=== PATIENT | female | born 1940 | race Caucasian/White ===

== ENCOUNTER 2016-08-18 13:45 | Emergency (ER) | payer MEDICARE, OTHER ==
[~2016-08-18] VITALS: Ht 147.3 cm; Wt 43.0 kg
[~2016-08-18 13:45] MED LIST: ASPI325T PO; LOTR5CAP3 PO; [UNRECOGNIZED DRUG - OTHER] PO
[2016-08-18 13:49] VITALS: BP 213/104; PULSE 72; RESP 18; TEMP 97.8; O2SAT 98
[2016-08-18 13:50] VITALS: BP 223/102
[2016-08-18 14:03] VITALS: BP 194/91; PULSE 85; RESP 20; TEMP 98.6; O2SAT 98
--- NOTE | 2016-08-18 14:13 | PD ---
HPI Chief Complaint: Neuro Symptoms/ Deficits Time Seen by Provider: 14:10 Travel History International Travel<30 days: No Contact w/Intl Traveler<30days: No Traveled to known affect area: No History of Present Illness HPI Patient comes in for evaluation from her primary care doctor's office for altered mental status and a headache that began yesterday. Patient's daughter states that her mother and diarrhea last night, complaining of a headache, and has been acting more disoriented over the past several days since her was place in the hospital for stroke. Reports that her mother tried sneaking out of the house today to drive herself to see her doctor. Patient complaining of a headache in the frontal lobe is throbbing like in nature. Patient denies anything making it better or worse. Denies chest pain, shortness of breath, nausea, vomiting, fevers, diarrhea today, blood in diarrhea last night, numbness or tingling anywhere, weakness, or taking her blood pressure medicine this morning. Patient's daughter reports that her mom has a shuffling gait which is unchanged and aside from the reported headache and odd behavior appears her normal self. PFSH Past Medical History Autoimmune Disease: No Blood Disorders: No Anxiety: No Depression: No Heart Rhythm Problems: No Cancer: No Cardiovascular Problems: Yes High Cholesterol: Yes Chemotherapy: No Chest Pain: No Congestive Heart Failure: No Cerebrovascular Accident: Yes Diabetes: No Endocrine: No GERD: No Glaucoma: No Genitourinary: No Headaches: No Hepatitis: Yes Hiatal Hernia: No Hypertension: Yes Immune Disorder: No Musculoskeletal: No Neurologic: Yes (BRAIN ANEURYSM) Psychiatric: No Reproductive: No Respiratory: No Migraines: Yes Myocardial Infarction: No Radiation Therapy: No Seizures: No Sickle Cell Disease: No Thyroid Disease: No Ulcer: No Menopausal: Yes : 5 Para: 5 Past Surgical History Abdominal Surgery: No AICD: No Appendectomy: No Arteriovenous Shunt: No Cardiac Surgery: No Cholecystectomy: No Ear Surgery: No Endocrine Surgery: No Genitourinary Surgery: No Gynecologic Surgery: No Insulin Pump: No Joint Replacement: No Oral Surgery: Yes (T&A) Pacemaker: No Thoracic Surgery: Yes (RIGHT BREAST LUMPECTOMY) Social History Alcohol Use: Yes (2 GLASSES WINE OR SCOTCH DAILY) Tobacco Use: No Substance Use: No Allergies-Medications (Allergen,Severity, Reaction): Coded Allergies: Xylocaine (Verified Allergy, Severe, ANAPHYLAXIS, 08/18/16) Uncoded Allergies: NOVACAINE (Adverse Reaction, Severe, ANAPHYLAXIS, 07/31/08) Reported Meds & Prescriptions Reported Meds & Active Scripts Active Risperdal (Risperidone) 0.5 Mg Tab 0.5 Mg PO Q12HR Reported Benazepril (Benazepril HCl) 20 Mg Tab 20 Mg PO DAILY Aspirin 325 Mg Tab 325 Mg PO DAILY Meloxicam 15 Mg Tab 15 Mg PO DAILY Review of Systems Except as stated in HPI: all other systems reviewed are Neg Physical Exam Narrative GENERAL: Well-developed, well nourished, in no acute distress, and non-ill appearing. SKIN: Focused skin assessment warm and dry. HEAD: Atraumatic. Normocephalic. EYES: Pupils equal and round. EOMI. No scleral icterus. No injection or drainage. ENT: No nasal bleeding or discharge. Mucous membranes pink and moist. NECK: Trachea midline. No JVD. Supple. No nuclear rigidity. CARDIOVASCULAR: Regular rate and rhythm. Murmur appreciated. RESPIRATORY: No accessory muscle use. No respiratory distress. Clear to auscultation. Breath sounds equal bilaterally. GASTROINTESTINAL: Abdomen soft, non-tender, nondistended. Hepatic and splenic margins not palpable. Normal bowel sounds 4. No pulsatile mass. MUSCULOSKELETAL: No obvious deformities. No clubbing. No cyanosis. No edema. Full range of motion. NEUROLOGICAL: Awake and alert. No obvious cranial nerve deficits. Motor grossly within normal limits. Normal speech. Equal rise and fall of eyebrows bilaterally, smiling equal bilaterally. No deviation of tongue on protrusion, no pronator drift, patient is able to ambulate and bear full weight. Strength is 5 out of 5 and equal bilateral upper extremities. PSYCHIATRIC: Appropriate mood and affect; insight and judgment normal. Data Data Last Documented VS Vital Signs Date Time Temp Pulse Resp B/P Pulse Ox O2 Delivery O2 Flow Rate FiO2 08/18/16 15:09 85 18 197/95 99 Room Air 08/18/16 14:03 98.6 Orders Electrocardiogram (08/18/16 14:04) Complete Blood Count With Diff (08/18/16 14:04) Comprehensive Metabolic Panel (08/18/16 14:04) Prothrombin Time / Inr (Pt) (08/18/16 14:04) Act Partial Throm Time (Ptt) (08/18/16 14:04) Urinalysis - C+S If Indicated (08/18/16 14:04) Blood Glucose (08/18/16 14:04) Ecg Monitoring (08/18/16 14:04) Iv Access Insert/Monitor (08/18/16 14:04) Oximetry (08/18/16 14:04) Sodium Chloride 0.9% Flush (Ns Flush) (08/18/16 14:15) Ct Brain W/O Iv Contrast(Rout) (08/18/16 14:09) Risperidone (Risperdal) (08/18/16 16:30) Labs Laboratory Tests Test 08/18/16 08/18/16 14:30 15:40 White Blood Count 8.6 TH/MM3 Red Blood Count 4.88 MIL/MM3 Hemoglobin 13.0 GM/DL Hematocrit 39.6 % Mean Corpuscular Volume 81.1 FL Mean Corpuscular Hemoglobin 26.7 PG Mean Corpuscular Hemoglobin 32.9 % Concent Red Cell Distribution Width 15.7 % Platelet Count 337 TH/MM3 Mean Platelet Volume 8.6 FL Neutrophils (%) (Auto) 75.6 % Lymphocytes (%) (Auto) 15.3 % Monocytes (%) (Auto) 7.6 % Eosinophils (%) (Auto) 0.5 % Basophils (%) (Auto) 1.0 % Neutrophils # (Auto) 6.5 TH/MM3 Lymphocytes # (Auto) 1.3 TH/MM3 Monocytes # (Auto) 0.7 TH/MM3 Eosinophils # (Auto) 0.0 TH/MM3 Basophils # (Auto) 0.1 TH/MM3 CBC Comment DIFF FINAL Differential Comment Prothrombin Time 10.2 SEC Prothromb Time International 0.9 RATIO Ratio Activated Partial 28.3 SEC Thromboplast Time Sodium Level 132 MEQ/L Potassium Level 4.2 MEQ/L Chloride Level 98 MEQ/L Carbon Dioxide Level 25.0 MEQ/L Anion Gap 9 MEQ/L Blood Urea Nitrogen 7 MG/DL Creatinine 0.68 MG/DL Estimat Glomerular Filtration 84 ML/MIN Rate Random Glucose 92 MG/DL Calcium Level 9.2 MG/DL Total Bilirubin 0.4 MG/DL Aspartate Amino Transf 23 U/L (AST/SGOT) Alanine Aminotransferase 17 U/L (ALT/SGPT) Alkaline Phosphatase 103 U/L Total Protein 7.4 GM/DL Albumin 4.1 GM/DL Urine Color LIGHT-YELLOW Urine Turbidity CLEAR Urine pH 7.0 Urine Specific [place] 1.003 Urine Protein NEG mg/dL Urine Glucose (UA) NEG mg/dL Urine Ketones NEG mg/dL Urine Occult Blood NEG Urine Nitrite NEG Urine Bilirubin NEG Urine Urobilinogen LESS THAN 2.0 MG/DL Urine Leukocyte Esterase NEG Urine WBC LESS THAN 1 /hpf Microscopic Urinalysis Comment CATH-CULT NOT IND MDM Medical Decision Making Medical Screen Exam Complete: Yes Emergency Medical Condition: Yes Interpretation(s) EKG reviewed by Dr. Zapata shows sinus rhythm with ventricular rate of 82. No STEMI. Differential Diagnosis CVA, TIA, electrolyte abnormality, UTI, other Narrative Course Patient seen and examined. Initial laboratory and radiological studies were obtained and reviewed. Discussed patient with Dr. Zapata, who saw and evaluated the patient spoke with patient's primary care provider. Please see his documentation for final diagnosis and disposition. Scripts Risperidone (Risperdal)0.5 Mg Tab0.5 Mg PO Q12HR #60 TAB Ref 0 Prov:Osvaldo Zapata MD 08/18/16 Fracisco Farias Aug 18, 2016 14:13
[2016-08-18] MEDS ORDERED: SODIUM CHLORIDE 0.9% FLUSH 10 ML FLUSH IVF PRN (14:15)
[2016-08-18 15:02] LABS: AUTOMATED NEUTROPHIL # 6.5 TH/MM3 (1.8-7.7); BASOPHIL # 0.1 TH/MM3 (0-0.2); EOSINOPHIL % 0.5 % (0.0-4.0); HEMATOCRIT 39.6 % (35.0-46.0); HEMO FLAGS DIFF FINAL; LYMPH % 15.3 % (9.0-44.0); LYMPHOCYTE # 1.3 TH/MM3 (1.0-4.8); MEAN CELL VOLUME 81.1 FL (80.0-100.0); MEAN CORPUSCULAR HEMOGLOBIN 26.7 PG (27.0-34.0); MEAN CORPUSCULAR HGB CONC 32.9 % (32.0-36.0); MONO % 7.6 % (0.0-8.0); NEUT % 75.6 % (16.0-70.0); PLATELET COUNT 337 TH/MM3 (150-450); RED BLOOD COUNT 4.88 MIL/MM3 (4.00-5.30); RED CELL DISTRIBUTION WIDTH 15.7 % (11.6-17.2); WHITE BLOOD COUNT 8.6 TH/MM3 (4.0-11.0)
--- NOTE | 2016-08-18 15:03 | RADRPT ---
EXAM DATE/TIME: 08/18/2016 14:26 [facility] COMPARISON: No previous studies available for comparison. INDICATIONS : Altered mental status RADIATION DOSE: 56.35 CTDIvol (mGy) MEDICAL HISTORY : Cardiovascular disease. Aneurysm, intracranial. Hypertension. SURGICAL HISTORY : None. ENCOUNTER: Initial ACUITY: 1 day PAIN SCALE: Non-responsive LOCATION: cranial TECHNIQUE: Multiple contiguous axial images were obtained of the head. Using automated exposure control and adj ustment of the mA and/or kV according to patient size, radiation dose was kept as low as reasonably a chievable to obtain optimal diagnostic quality images. FINDINGS: CEREBRUM: The ventricles are normal for age with diffuse atrophic change. Extensive periventricular white matte r lucencies are present. No evidence of midline shift, mass lesion, hemorrhage or acute infarction. No extra-axial fluid collections are seen. POSTERIOR FOSSA: The cerebellum and brainstem are intact. The 4th ventricle is midline. The cerebellopontine angle i s unremarkable. EXTRACRANIAL: The visualized portion of the orbits is intact. SKULL: The calvaria is intact. No evidence of skull fracture. CONCLUSION: 1. No acute hemorrhage or mass effect. 2. Atrophy and findings most characteristic of chronic small vessel ischemic change. Migel Henry MD on August 18, 2016 at 15:00 Board Certified Radiologist. This report was verified electronically.
[2016-08-18] MEDS ORDERED: ASPI325T PO (15:08)
[2016-08-18] MEDS ORDERED: MELO-1 PO (15:08)
[2016-08-18 15:09] VITALS: BP 197/95; PULSE 85; RESP 18; O2SAT 99
[2016-08-18] MEDS ORDERED: BENA20TA PO (15:09)
--- NOTE | 2016-08-18 15:14 | PD ---
Physical Exam Date Seen by Provider: Aug 18, 2016 Time Seen by Provider: 15:10 Narrative The patient is a 76-year-old female was initially evaluated by the mid-level provider. Please refer to the initial history, physical, diagnostic evaluation , and treatment modality plan. Data Data Last Documented VS Vital Signs Date Time Temp Pulse Resp B/P Pulse Ox O2 Delivery O2 Flow Rate FiO2 08/18/16 15:09 85 18 197/95 99 Room Air 08/18/16 14:03 98.6 Orders Electrocardiogram (08/18/16 14:04) Complete Blood Count With Diff (08/18/16 14:04) Comprehensive Metabolic Panel (08/18/16 14:04) Prothrombin Time / Inr (Pt) (08/18/16 14:04) Act Partial Throm Time (Ptt) (08/18/16 14:04) Urinalysis - C+S If Indicated (08/18/16 14:04) Blood Glucose (08/18/16 14:04) Ecg Monitoring (08/18/16 14:04) Iv Access Insert/Monitor (08/18/16 14:04) Oximetry (08/18/16 14:04) Sodium Chloride 0.9% Flush (Ns Flush) (08/18/16 14:15) Ct Brain W/O Iv Contrast(Rout) (08/18/16 14:09) Labs Laboratory Tests Test 08/18/16 08/18/16 14:30 15:40 White Blood Count 8.6 TH/MM3 Red Blood Count 4.88 MIL/MM3 Hemoglobin 13.0 GM/DL Hematocrit 39.6 % Mean Corpuscular Volume 81.1 FL Mean Corpuscular Hemoglobin 26.7 PG Mean Corpuscular Hemoglobin 32.9 % Concent Red Cell Distribution Width 15.7 % Platelet Count 337 TH/MM3 Mean Platelet Volume 8.6 FL Neutrophils (%) (Auto) 75.6 % Lymphocytes (%) (Auto) 15.3 % Monocytes (%) (Auto) 7.6 % Eosinophils (%) (Auto) 0.5 % Basophils (%) (Auto) 1.0 % Neutrophils # (Auto) 6.5 TH/MM3 Lymphocytes # (Auto) 1.3 TH/MM3 Monocytes # (Auto) 0.7 TH/MM3 Eosinophils # (Auto) 0.0 TH/MM3 Basophils # (Auto) 0.1 TH/MM3 CBC Comment DIFF FINAL Differential Comment Prothrombin Time 10.2 SEC Prothromb Time International 0.9 RATIO Ratio Activated Partial 28.3 SEC Thromboplast Time Sodium Level 132 MEQ/L Potassium Level 4.2 MEQ/L Chloride Level 98 MEQ/L Carbon Dioxide Level 25.0 MEQ/L Anion Gap 9 MEQ/L Blood Urea Nitrogen 7 MG/DL Creatinine 0.68 MG/DL Estimat Glomerular Filtration 84 ML/MIN Rate Random Glucose 92 MG/DL Calcium Level 9.2 MG/DL Total Bilirubin 0.4 MG/DL Aspartate Amino Transf 23 U/L (AST/SGOT) Alanine Aminotransferase 17 U/L (ALT/SGPT) Alkaline Phosphatase 103 U/L Total Protein 7.4 GM/DL Albumin 4.1 GM/DL Urine Color LIGHT-YELLOW Urine Turbidity CLEAR Urine pH 7.0 Urine Specific [place] 1.003 Urine Protein NEG mg/dL Urine Glucose (UA) NEG mg/dL Urine Ketones NEG mg/dL Urine Occult Blood NEG Urine Nitrite NEG Urine Bilirubin NEG Urine Urobilinogen LESS THAN 2.0 MG/DL Urine Leukocyte Esterase NEG Urine WBC LESS THAN 1 /hpf Microscopic Urinalysis Comment CATH-CULT NOT IND MDM Medical Record Reviewed: Yes Supervised Visit with RADHA: Yes Interpretation(s) EKG reveals normal sinus rhythm with a rate 82. No ischemic changes or ectopy noted. Last Impressions Head CT 08/18/16 1409 Signed Impressions: Service Date/Time: Thursday, August 18, 2016 14:26 - CONCLUSION: 1. No acute hemorrhage or mass effect. 2. Atrophy and findings most characteristic of chronic small vessel ischemic change. Migel Henry MD Laboratory Tests Test 08/18/16 08/18/16 14:30 15:40 White Blood Count 8.6 TH/MM3 Red Blood Count 4.88 MIL/MM3 Hemoglobin 13.0 GM/DL Hematocrit 39.6 % Mean Corpuscular Volume 81.1 FL Mean Corpuscular Hemoglobin 26.7 PG Mean Corpuscular Hemoglobin 32.9 % Concent Red Cell Distribution Width 15.7 % Platelet Count 337 TH/MM3 Mean Platelet Volume 8.6 FL Neutrophils (%) (Auto) 75.6 % Lymphocytes (%) (Auto) 15.3 % Monocytes (%) (Auto) 7.6 % Eosinophils (%) (Auto) 0.5 % Basophils (%) (Auto) 1.0 % Neutrophils # (Auto) 6.5 TH/MM3 Lymphocytes # (Auto) 1.3 TH/MM3 Monocytes # (Auto) 0.7 TH/MM3 Eosinophils # (Auto) 0.0 TH/MM3 Basophils # (Auto) 0.1 TH/MM3 CBC Comment DIFF FINAL Differential Comment Prothrombin Time 10.2 SEC Prothromb Time International 0.9 RATIO Ratio Activated Partial 28.3 SEC Thromboplast Time Sodium Level 132 MEQ/L Potassium Level 4.2 MEQ/L Chloride Level 98 MEQ/L Carbon Dioxide Level 25.0 MEQ/L Anion Gap 9 MEQ/L Blood Urea Nitrogen 7 MG/DL Creatinine 0.68 MG/DL Estimat Glomerular Filtration 84 ML/MIN Rate Random Glucose 92 MG/DL Calcium Level 9.2 MG/DL Total Bilirubin 0.4 MG/DL Aspartate Amino Transf 23 U/L (AST/SGOT) Alanine Aminotransferase 17 U/L (ALT/SGPT) Alkaline Phosphatase 103 U/L Total Protein 7.4 GM/DL Albumin 4.1 GM/DL Urine Color LIGHT-YELLOW Urine Turbidity CLEAR Urine pH 7.0 Urine Specific [place] 1.003 Urine Protein NEG mg/dL Urine Glucose (UA) NEG mg/dL Urine Ketones NEG mg/dL Urine Occult Blood NEG Urine Nitrite NEG Urine Bilirubin NEG Urine Urobilinogen LESS THAN 2.0 MG/DL Urine Leukocyte Esterase NEG Urine WBC LESS THAN 1 /hpf Microscopic Urinalysis Comment CATH-CULT NOT IND Differential Diagnosis Differential diagnosis includes CVA, delirium, UTI, hyponatremia, subdural hemorrhage, subarachnoid hemorrhage, dehydration, electrolyte abnormality, dementia, medication side effect. Narrative Course I, Dr. Zapata, have reviewed the advance practice practitioner's documentation and am in agreement, met with the patient face to face, made the diagnosis, and the medical decision making was done by me. *My assessment and Findings: 76-year-old female who appears her stated age and is in no acute respiratory distress. According to family members she does have a history of dementia, they note that her is currently in the hospital for CVA and the patient is had intermittent episodes of confusion. The patient apparently drove to her primary physician's office earlier today, Dr. Corrigan who advised family to bring the patient to the emergency department for evaluation. The patient denies any history of dementia personally, however, family note that the patient does have a history of recent dementia. The patient denies any focal deficits, does complain of intermittent headache. Neurologic exam was unremarkable except for the patient was unable to tell me the current month or year. Patient is able to move all 4 extremities without difficulty and demonstrated no dysarthria. CT of the brain was negative. UA was sent to lab. UA is negative. Sodium is minimally low at 132. The patient may have sundowning and/or delirium on top of dementia. A call was placed to the patient's primary physician. The family is comfortable taking the patient home, there are multiple daughters who are willing to watch the patient while they come up with a plan for definitive care. Dr. Corrigan was patient 4:09 PM. I discussed the patient with her primary physician at 4:12 PM, we will place the patient on Risperdal 0.5 mg twice a day, hold for sedation. The family will be provided a copy of CT and labs at discharge. Return if symptoms worsen or progress. Diagnosis Primary Impression: Delirium Additional Impression: Altered mental status Qualified Code: R41.82 - Altered mental status, unspecified altered mental status type Patient Instructions: General Instructions Additional Instruction: Medications as directed. Follow-up with her primary physician. Please provide the patient and her family a copy of CT results and lab results at discharge. Return if symptoms worsen or progress. Med/Other Pt SpecificInfo: Prescription(s) given Scripts Risperidone (Risperdal)0.5 Mg Tab0.5 Mg PO Q12HR #60 TAB Ref 0 Prov:Osvaldo Zapata MD 08/18/16 Disposition: DISCHARGE HOME Condition: Stable Osvaldo Zapata MD Aug 18, 2016 15:14
[2016-08-18 15:21] LABS: APTT (PATIENT) 28.3 SEC (24.3-30.1); INTERNATIONAL NORMALIZED RATIO 0.9 RATIO; PROTHROMBIN TIME - PATIENT 10.2 SEC (9.8-11.6)
[2016-08-18 15:31] LABS: ALKALINE PHOSPHATASE 103 U/L (45-117); TOTAL BILIRUBIN ADULT 0.4 MG/DL (0.2-1.0)
[2016-08-18 15:38] LABS: ALT (GPT) 17 U/L (10-53); ANION GAP 9 MEQ/L (5-15); AST (GOT) 23 U/L (15-37); BLOOD UREA NITROGEN 7 MG/DL (7-18); CHLORIDE 98 MEQ/L (98-107); GLOMERULAR FILTRATION RATE 84 ML/MIN (>89); POTASSIUM 4.2 MEQ/L (3.5-5.1); SODIUM (NA) 132 MEQ/L (136-145)
[2016-08-18 16:02] LABS: BLOOD, URINE NEG (NEG); GLUCOSE,URINE NEG (NEG); KETONE, URINE NEG (NEG); NITRITE,URINE NEG (NEG); URINE COLOR LIGHT-YELLOW (YELLW/STRAW)
[2016-08-18 16:03] LABS: COMMENT (UR) CATH-CULT NOT IND; CULTURE IF INDICATED CATH CULTURE NOT IND
[2016-08-18] MEDS ORDERED: RISP0.5T20 PO (16:16)
[2016-08-18] MEDS ORDERED: risperiDONE 0.5 MG TAB PO ONE (16:30)
[2016-08-18 16:38] VITALS: BP 175/83
--- NOTE | 2016-08-19 08:59 | EKG ---
Date Performed: 08/18/2016 Time Performed: 15:05:26 PTAGE: 76 years EKG: Sinus rhythm POSSIBLE LEFT ATRIAL ENLARGEMENT BORDERLINE ECG PREVIOUS TRACING : 08/01/2008 02.27 No significant change from previous tracing noted. DOCTOR: Art Solis Interpretating Date/Time 08/19/2016 08:58:08
== END 2016-08-18 16:59 | disposition home or self-care (01) ==
LOC: NEPC 13:45
DX: R41.82 Altered mental status, unspecified (principal); R41.0 Disorientation, unspecified; I10 Essential (primary) hypertension; E78.00 Pure hypercholesterolemia, unspecified; Z86.73 Personal history of transient ischemic attack (TIA), and cerebral infarction without residual deficits
CPT/HCPCS: 70450; 80053; 81001; 85025; 85610; 85730; 93005

== ENCOUNTER 2016-08-22 14:37 | Inpatient (IN) | payer MEDICARE, OTHER ==
[~2016-08-22] VITALS: Ht 147.3 cm; Wt 42.0 kg
[~2016-08-22 14:37] MED LIST changes: +BENA20TA PO; -LOTR5CAP3 PO; +MELO-1 PO; +RISP0.5T20 PO; -[UNRECOGNIZED DRUG - OTHER] PO
[2016-08-22 14:40] VITALS: BP 194/85; PULSE 86; RESP 20; TEMP 98; O2SAT 97
--- NOTE | 2016-08-22 14:45 | PD ---
Physical Exam Date Seen by Provider: Aug 22, 2016 Time Seen by Provider: 14:44 Narrative 76 yo female comes here for hemorraghic stroke. Seen on MRI today in [facility] called by Ayala Murdock's office to come here for evaluation. She is disoriented. No pain. No other symptoms. She is immediate bedding. Vitals sign stable. Patient awaiting bed placement. Data Data Last Documented VS Vital Signs Date Time Temp Pulse Resp B/P Pulse Ox O2 Delivery O2 Flow Rate FiO2 08/22/16 14:40 98.0 86 20 194/85 97 Room Air [facility] Medical Record Reviewed: Yes Supervised Visit with RADHA: No Min New Aug 22, 2016 14:45
--- NOTE | 2016-08-22 14:50 | PD ---
HPI Chief Complaint: Neuro Symptoms/ Deficits Time Seen by Provider: 14:46 Travel History International Travel<30 days: No Contact w/Intl Traveler<30days: No Traveled to known affect area: No History of Present Illness HPI The patient is a 76-year-old female who presents to the emergency department with family after an abnormal outpatient MRI. The patient was evaluated in the emergency department several days ago for altered mental status. The patient had a workup for delirium at that time, CT the brain was negative, UA was unremarkable, metabolic profile is unremarkable and after discussion with the patient's primary physician, Dr. Murdock, the patient was discharged home with a prescription for Risperdal. The patient continued to have abnormal behavior according to the family, was evaluated by her primary physician again, apparently had some visual changes, therefore, had an outpatient MRI ordered. The patient had an outpatient MRI ordered today which revealed a 1.5 cm hemorrhage. MRI stated there was a 1.5 cm early subacute intraparenchymal hemorrhage involving the left occipital lobe. There was no mass effect. The family knows the patient was complaining of visual changes out of both eyes affect the right side which is apparently resolved. Upon arrival the patient follows commands, appears slightly confused at times, and laughing at inappropriate times. The patient does have a history of dementia. The patient's was recently admitted to the hospital for a stroke and was transferred to a rehabilitation facility yesterday. The family thinks that the recent stress has exacerbated her dementia. The patient denies any physical complaints upon arrival. She denies any weakness or numbness of the upper or lower extremities. PFSH Past Medical History Autoimmune Disease: No Blood Disorders: No Anxiety: No Depression: No Heart Rhythm Problems: No Cancer: No Cardiovascular Problems: Yes High Cholesterol: Yes Chemotherapy: No Chest Pain: No Congestive Heart Failure: No Cerebrovascular Accident: Yes Diabetes: No Diminished Hearing: No Endocrine: No GERD: No Glaucoma: No Genitourinary: No Headaches: No Hepatitis: Yes Hiatal Hernia: No Hypertension: Yes Immune Disorder: No Implanted Vascular Access Dvce: Yes Musculoskeletal: No Neurologic: Yes (BRAIN ANEURYSM) Psychiatric: No Reproductive: No Respiratory: No Migraines: Yes Myocardial Infarction: No Radiation Therapy: No Seizures: No Sickle Cell Disease: No Thyroid Disease: No Ulcer: No Menopausal: Yes : 5 Para: 5 Miscarriage: 0 : 0 Past Surgical History Abdominal Surgery: No AICD: No Appendectomy: No Arteriovenous Shunt: No Cardiac Surgery: No Cholecystectomy: No Ear Surgery: No Endocrine Surgery: No Genitourinary Surgery: No Gynecologic Surgery: No Insulin Pump: No Joint Replacement: No Oral Surgery: Yes (T&A) Pacemaker: No Thoracic Surgery: Yes (RIGHT BREAST LUMPECTOMY) Tonsillectomy: Yes (T&A) Social History Alcohol Use: Yes (2 GLASSES WINE OR SCOTCH DAILY) Tobacco Use: No Substance Use: No Allergies-Medications (Allergen,Severity, Reaction): Coded Allergies: Xylocaine (Verified Allergy, Severe, ANAPHYLAXIS, 08/18/16) Uncoded Allergies: NOVACAINE (Adverse Reaction, Severe, ANAPHYLAXIS, 07/31/08) Reported Meds & Prescriptions Reported Meds & Active Scripts Active Risperdal (Risperidone) 0.5 Mg Tab 0.5 Mg PO Q12HR Reported Benazepril (Benazepril HCl) 20 Mg Tab 20 Mg PO DAILY Aspirin 325 Mg Tab 325 Mg PO DAILY Meloxicam 15 Mg Tab 15 Mg PO DAILY Review of Systems ROS Limitations: Altered Mental Status Except as stated in HPI: all other systems reviewed are Neg Eyes: Positive: Visual changes HENT: No: Headaches, Lightheadedness Cardiovascular: No: Chest Pain or Discomfort Respiratory: No: Shortness of Breath Gastrointestinal: No: Nausea, Vomiting, Abdominal Pain Musculoskeletal: No: Weakness Neurologic: Positive: Change in Mentation, No: Dizziness Physical Exam Narrative GENERAL: Awake, alert, 76-year-old female who appears her stated age and is in no acute respiratory distress. SKIN: Focused skin assessment warm/dry. HEAD: Atraumatic. Normocephalic. EYES: Pupils equal and round. Pupils are 3 mm bilateral and reactive. EOMs are intact. Patient is able see fingers at a distance of 2 feet without difficulty. Visual kraft were obtained, the patient appears to have slight deficits in the right lower aspect of her vision, however, exam was not reliable as patient was joking during the examination. ENT: No nasal bleeding or discharge. Mucous membranes pink and moist. NECK: Trachea midline. No JVD. CARDIOVASCULAR: Regular rate and rhythm. No murmur appreciated. RESPIRATORY: No accessory muscle use. Clear to auscultation. Breath sounds equal bilaterally. GASTROINTESTINAL: Abdomen soft, non-tender, nondistended. Hepatic and splenic margins not palpable. MUSCULOSKELETAL: No obvious deformities. No clubbing. No cyanosis. No edema. NEUROLOGICAL: Awake and alert. No obvious cranial nerve deficits. Motor grossly within normal limits. Normal speech. Finger to nose is normal. No drift of the upper or lower extremities. Oriented to person, not day the week or month. PSYCHIATRIC: Slightly inappropriate joking during the physical examination. Data Data Last Documented VS Vital Signs Date Time Temp Pulse Resp B/P Pulse Ox O2 Delivery O2 Flow Rate FiO2 08/22/16 15:25 83 16 167/78 99 Room Air 08/22/16 14:40 98.0 Orders Labetalol Inj (Trandate Inj) (08/22/16 15:15) Complete Blood Count With Diff (08/22/16 15:04) Comprehensive Metabolic Panel (08/22/16 15:04) Act Partial Throm Time (Ptt) (08/22/16 15:04) Prothrombin Time / Inr (Pt) (08/22/16 15:04) Urinalysis - C+S If Indicated (08/22/16 15:04) Ct Brain W/O Iv Contrast(Rout) (08/22/16 ) Lorazepam Inj (Ativan Inj) (08/22/16 15:30) Admit Order (Ed Use Only) (08/22/16 16:33) Admit To Inpatient (08/22/16 ) Code Status (08/22/16 16:30) Vital Signs (Adult) BLUE.Q1H (08/22/16 16:30) Activity Bed Rest (08/22/16 16:30) ^ Elevate Head Of Bed (08/22/16 16:30) Neuro Checks . ORDERED (08/22/16 16:30) Diet Npo (08/22/16 Dinner) Sodium Chlor 0.9% 1000 Ml Inj (Ns 1000 M (08/22/16 16:30) Sodium Chloride 0.9% Flush (Ns Flush) (08/22/16 16:30) Sodium Chloride 0.9% Flush (Ns Flush) (08/22/16 21:00) Acetaminophen (Tylenol) (08/22/16 16:30) Pantoprazole Inj (Protonix Inj) (08/23/16 09:00) Ondansetron Inj (Zofran Inj) (08/22/16 16:30) Docusate Sodium (Colace) (08/22/16 21:00) Sennosides (Senokot) (08/22/16 16:30) Albuterol-Ipratropium Neb (Duoneb Neb) (08/22/16 16:30) Resp Oxygen Ahsan C Titrat 1-4 L (08/22/16 ) Cream Hauler / Telemetry BLUE.Q8H (08/22/16 16:30) Scd Bilateral/Knee High BLUE.BID (08/22/16 16:30) ^ Initiate Protocol (08/22/16 16:30) ^ Instruction (08/22/16 16:30) Misc Nursing Information (08/22/16 16:30) Chlorhexidine 2% Cloth (Chlorhexidine 2% (08/23/16 04:00) Chlorhexidine 2% Cloth (Chlorhexidine 2% (08/22/16 16:30) Mrsa Pcr Surveillance (08/22/16 16:30) ^ Medication Admin Instruction (08/22/16 16:30) Notify Dr: Other (08/22/16 16:30) Phosphorus (Po4) (08/22/16 16:30) Potassium Chlor 40 Meq Premix (Kcl 40 Me (08/22/16 16:30) Potassium Chlor 20 Meq Premix (Kcl 20 Me (08/22/16 16:30) Potassium Chloride Eff (K-Lyte Cl Eff) (08/22/16 16:30) Potassium Chlor 40 Meq Premix (Kcl 40 Me (08/22/16 16:30) Potassium Chlor 20 Meq Premix (Kcl 20 Me (08/22/16 16:30) Magnesium Sulfate Inj (Magnesium Sulfate (08/22/16 16:30) Magnesium Oxide (Mag-Ox) (08/22/16 16:30) Magnesium Sulfate Inj (Magnesium Sulfate (08/22/16 16:30) Potassium Phosphate (K-Phos) (08/22/16 16:30) Sodium Phosphate Inj (Sodium Phosphate I (08/22/16 16:30) Potassium Phosphate (K-Phos) (08/22/16 16:30) Inpatient Certification (08/22/16 ) Consult Neurosurgery (08/22/16 ) Bedside Glucose BLUE.AC&HS (08/22/16 16:34) Blood Glucose Goal (Criteria) (08/22/16 16:34) Hypoglycemia 51 - 69 Mg/Dl (08/22/16 16:34) Hypoglycemia 50 Mg/Dl Or < (08/22/16 16:34) Notify Dr: Other (08/22/16 16:34) Dextrose 50% In [place] (Vial) Inj (D50w (Vi (08/22/16 16:45) Glucagon Inj (Glucagon Inj) (08/22/16 16:45) Low Novolog Scale (08/22/16 21:00) Labs Laboratory Tests Test 08/22/16 15:15 White Blood Count 7.0 TH/MM3 Red Blood Count 4.69 MIL/MM3 Hemoglobin 12.4 GM/DL Hematocrit 38.1 % Mean Corpuscular Volume 81.4 FL Mean Corpuscular Hemoglobin 26.4 PG Mean Corpuscular Hemoglobin 32.4 % Concent Red Cell Distribution Width 15.3 % Platelet Count 364 TH/MM3 Mean Platelet Volume 8.0 FL Neutrophils (%) (Auto) 63.9 % Lymphocytes (%) (Auto) 22.5 % Monocytes (%) (Auto) 11.3 % Eosinophils (%) (Auto) 1.4 % Basophils (%) (Auto) 0.9 % Neutrophils # (Auto) 4.5 TH/MM3 Lymphocytes # (Auto) 1.6 TH/MM3 Monocytes # (Auto) 0.8 TH/MM3 Eosinophils # (Auto) 0.1 TH/MM3 Basophils # (Auto) 0.1 TH/MM3 CBC Comment DIFF FINAL Differential Comment Prothrombin Time 10.1 SEC Prothromb Time International 0.9 RATIO Ratio Activated Partial 28.5 SEC Thromboplast Time Sodium Level 132 MEQ/L Potassium Level 4.3 MEQ/L Chloride Level 95 MEQ/L Carbon Dioxide Level 26.0 MEQ/L Anion Gap 11 MEQ/L Blood Urea Nitrogen 12 MG/DL Creatinine 0.86 MG/DL Estimat Glomerular Filtration 64 ML/MIN Rate Random Glucose 94 MG/DL Calcium Level 9.3 MG/DL Total Bilirubin 0.4 MG/DL Aspartate Amino Transf 20 U/L (AST/SGOT) Alanine Aminotransferase 14 U/L (ALT/SGPT) Alkaline Phosphatase 116 U/L Total Protein 7.2 GM/DL Albumin 4.0 GM/DL MDM Medical Decision Making Medical Screen Exam Complete: Yes Emergency Medical Condition: Yes Medical Record Reviewed: Yes Interpretation(s) MRI performed at [facility] reveals 1.5 cm early subacute intraparenchymal hemorrhage involving the left occipital lobe. This is not generate mass effect. Fairly extensive chronic small vessel ischemic change which has progressed from the prior study 2013. Area of prior infarction involving the left occipital lobe. Laboratory Tests Test 08/22/16 15:15 White Blood Count 7.0 TH/MM3 Red Blood Count 4.69 MIL/MM3 Hemoglobin 12.4 GM/DL Hematocrit 38.1 % Mean Corpuscular Volume 81.4 FL Mean Corpuscular Hemoglobin 26.4 PG Mean Corpuscular Hemoglobin 32.4 % Concent Red Cell Distribution Width 15.3 % Platelet Count 364 TH/MM3 Mean Platelet Volume 8.0 FL Neutrophils (%) (Auto) 63.9 % Lymphocytes (%) (Auto) 22.5 % Monocytes (%) (Auto) 11.3 % Eosinophils (%) (Auto) 1.4 % Basophils (%) (Auto) 0.9 % Neutrophils # (Auto) 4.5 TH/MM3 Lymphocytes # (Auto) 1.6 TH/MM3 Monocytes # (Auto) 0.8 TH/MM3 Eosinophils # (Auto) 0.1 TH/MM3 Basophils # (Auto) 0.1 TH/MM3 CBC Comment DIFF FINAL Differential Comment Prothrombin Time 10.1 SEC Prothromb Time International 0.9 RATIO Ratio Activated Partial 28.5 SEC Thromboplast Time Sodium Level 132 MEQ/L Potassium Level 4.3 MEQ/L Chloride Level 95 MEQ/L Carbon Dioxide Level 26.0 MEQ/L Anion Gap 11 MEQ/L Blood Urea Nitrogen 12 MG/DL Creatinine 0.86 MG/DL Estimat Glomerular Filtration 64 ML/MIN Rate Random Glucose 94 MG/DL Calcium Level 9.3 MG/DL Total Bilirubin 0.4 MG/DL Aspartate Amino Transf 20 U/L (AST/SGOT) Alanine Aminotransferase 14 U/L (ALT/SGPT) Alkaline Phosphatase 116 U/L Total Protein 7.2 GM/DL Albumin 4.0 GM/DL CT reveals a 1.2 cm hemorrhage in the left occipital region. Differential Diagnosis Differential diagnosis includes hemorrhage, hypertensive urgency, hypertensive emergency, coagulopathy, delirium, CVA, intracranial hemorrhage. Narrative Course IV was established, labs are drawn and sent, the patient was placed on cardiac telemetry monitoring and continuous pulse oximetry monitoring. I reviewed the patient's MRI the brain that was performed earlier today, she has a 1.5 cm early subacute intraparenchymal hemorrhage involving the left occipital lobe. There was no mass effect. I reviewed the CT of the brain from 2 days ago, there was no hemorrhage on CT, therefore, CT was ordered for possible comparison tomorrow if symptoms persist or progress. I discussed the patient with the neurosurgeon, Dr. Doe, who will evaluate the patient's CT the brain after it was performed. He requests admission to the intensive care unit under the teletray operator. I discussed the patient with the on-call physician for Dr. Murdock, Dr. Welch, we will notify Dr. Murdock that the patient will be admitted to the teletray operator. A call was placed to the on-call teletray operator for admission. I discussed the patient with Dr. Stern who agrees with admission. The patient received 20 mg of labetalol, her private pressure improved, systolic was less than 160, diastolic was less than 90. Patient was evaluated by the neurosurgeon and Dr. Stern in the emergency department. The patient will be admitted to the intensive surgical care unit. Physician Communication Physician Communication I discussed the patient with the on-call teletray operator, Dr. Stern, who agrees with admission. Diagnosis Primary Impression: Intraparenchymal hemorrhage of brain Additional Impressions: Delirium Altered mental status Qualified Code: R41.82 - Altered mental status, unspecified altered mental status type Condition: Serious Osvaldo Zapata MD Aug 22, 2016 14:50
[2016-08-22 15:00] VITALS: BP 222/103
[2016-08-22] MEDS ORDERED: LABETALOL HCL 100 MG/20 ML VIAL IV PUSH ONE (15:15)
[2016-08-22 15:25] VITALS: BP 167/78; PULSE 83; RESP 16; O2SAT 99
[2016-08-22] MEDS ORDERED: LORazepam 2 MG/ML VIAL IV PUSH ONE (15:30)
[2016-08-22 15:40] LABS: AUTOMATED NEUTROPHIL # 4.5 TH/MM3 (1.8-7.7); BASOPHIL # 0.1 TH/MM3 (0-0.2); BASOPHIL % 0.9 % (0.0-2.0); EOSINOPHIL # 0.1 TH/MM3 (0-0.4); EOSINOPHIL % 1.4 % (0.0-4.0); HEMATOCRIT 38.1 % (35.0-46.0); HEMO FLAGS DIFF FINAL; LYMPH % 22.5 % (9.0-44.0); LYMPHOCYTE # 1.6 TH/MM3 (1.0-4.8); MEAN CELL VOLUME 81.4 FL (80.0-100.0); MEAN CORPUSCULAR HEMOGLOBIN 26.4 PG (27.0-34.0); MEAN CORPUSCULAR HGB CONC 32.4 % (32.0-36.0); MONO % 11.3 % (0.0-8.0); NEUT % 63.9 % (16.0-70.0); PLATELET COUNT 364 TH/MM3 (150-450); RED BLOOD COUNT 4.69 MIL/MM3 (4.00-5.30); RED CELL DISTRIBUTION WIDTH 15.3 % (11.6-17.2)
[2016-08-22 15:56] LABS: APTT (PATIENT) 28.5 SEC (24.3-30.1); INTERNATIONAL NORMALIZED RATIO 0.9 RATIO; PROTHROMBIN TIME - PATIENT 10.1 SEC (9.8-11.6)
--- NOTE | 2016-08-22 16:01 | RADRPT ---
EXAM DATE/TIME: 08/22/2016 15:49 [facility] COMPARISON: CT BRAIN W/O CONTRAST, August 18, 2016, 14:26. INDICATIONS : Evaluate hemorrhage. RADIATION DOSE: 47.24 CTDIvol (mGy) MEDICAL HISTORY : Aneurysm, intracranial. Cardiovascular disease Hypertension. SURGICAL HISTORY : Tonsillectomy. ENCOUNTER: Initial ACUITY: 1 day PAIN SCALE: 0/10 LOCATION: Cranial TECHNIQUE: Multiple contiguous axial images were obtained of the head. Using automated exposure control and adj ustment of the mA and/or kV according to patient size, radiation dose was kept as low as reasonably a chievable to obtain optimal diagnostic quality images. FINDINGS: There is a small 1.2 cm hemorrhage in the left parietal occipital region with mild dilatation of the left lateral ventricle. The right hemisphere is unremarkable. Posterior fossa appears normal. Portion of orbits and paranasal sinuses visualized unremarkable. CONCLUSION: 1. A 1.2 cm hemorrhage left occipital region. 2. Mild dilatation of left lateral ventricle. Alessio Leon MD FACR on August 22, 2016 at 15:56 Board Certified Radiologist. This report was verified electronically.
[2016-08-22 16:04] LABS: ALKALINE PHOSPHATASE 116 U/L (45-117); ALT (GPT) 14 U/L (10-53); ANION GAP 11 MEQ/L (5-15); AST (GOT) 20 U/L (15-37); BLOOD UREA NITROGEN 12 MG/DL (7-18); CHLORIDE 95 MEQ/L (98-107); GLOMERULAR FILTRATION RATE 64 ML/MIN (>89); POTASSIUM 4.3 MEQ/L (3.5-5.1); SODIUM (NA) 132 MEQ/L (136-145); TOTAL BILIRUBIN ADULT 0.4 MG/DL (0.2-1.0)
[2016-08-22] MEDS ORDERED: POTASSIUM PHOSPHATE MONOBASIC 500 MG TAB PO/TUBE PRN (16:30)
[2016-08-22] MEDS ORDERED: POTASSIUM CHLOR 40 MEQ PREMIX 100 ML IV PRN ×2 (16:30)
[2016-08-22] MEDS ORDERED: SODIUM PHOSPHATE INJ 30 MMOL in SODIUM CHLOR 0.9% 250 ML INJ 240 ML IV PRN (16:30)
[2016-08-22] MEDS ORDERED: MAGNESIUM SULFATE INJ 2 GM in SODIUM CHLORIDE 0.9% INJ 96 ML IV PRN (16:30)
[2016-08-22] MEDS ORDERED: CHLORHEXIDINE GLUCONATE 2 % 1 PACK (2 CLOTHS) TOP PRN (16:30)
[2016-08-22] MEDS ORDERED: POTASSIUM CHLORIDE 25 MEQ EFFERVESCENT TAB PO PRN (16:30)
[2016-08-22] MEDS ORDERED: MAGNESIUM SULFATE INJ 4 GM in SODIUM CHLORIDE 0.9% INJ 92 ML IV PRN (16:30)
[2016-08-22] MEDS ORDERED: POTASSIUM PHOSPHATE MONOBASIC 500 MG TAB PO PRN (16:30)
[2016-08-22] MEDS ORDERED: ONDANSETRON HCL 4 MG/2 ML VIAL IV PRN (16:30)
[2016-08-22] MEDS ORDERED: POTASSIUM CHLOR 20 MEQ PREMIX 100 ML IV PRN ×2 (16:30)
[2016-08-22] MEDS ORDERED: RESP: ALBUTEROL 2.5 MG/IPRATROPIUM 0.5 MG NEB (PRN) INH (16:30)
[2016-08-22] MEDS ORDERED: SENNOSIDES 8.6 MG TAB PO PRN (16:30)
[2016-08-22] MEDS ORDERED: MISCELLANEOUS NURSING INFORMATION XX SCH (16:30)
[2016-08-22] MEDS ORDERED: MAGNESIUM OXIDE 400 MG TAB PO PRN (16:30)
[2016-08-22] MEDS ORDERED: SODIUM CHLORIDE 0.9% FLUSH 10 ML FLUSH IV FLUSH PRN (16:30)
[2016-08-22] MEDS ORDERED: GLUCAGON 1 MG/ML VIAL OTHER PRN (16:45)
[2016-08-22] MEDS ORDERED: DEXTROSE 50% IN WATER 50 ML VIAL(D50) IV PUSH PRN (16:45)
[2016-08-22] MEDS: SODIUM CHLOR 0.9% 1000 ML INJ 1,000 ML IV SCH (16:54)
[2016-08-22 16:59] VITALS: BP 149/74; PULSE 80; RESP 16; O2SAT 98
--- NOTE | 2016-08-22 17:18 | HHI.HP ---
HPI Service Critical Care Medicine Primary Care Physician Ayala Murdock MD Admission Diagnosis intraparenchymal hemorrhage, altered mental status, delirium Diagnosis: Travel History International Travel<30 Days: No Contact w/Intl Traveler <30 Da: No Traveled to Known Affected Are: No History of Present Illness The patient is a 76-year-old female that presented to the ED with family after an abnormal outpatient MRI. The patient was evaluated in the emergency department several days ago for altered mental status. The patient had a workup for delirium at that time, CT the brain was negative, UA was unremarkable, metabolic profile is unremarkable and after discussion with the patient's primary physician, Dr. Murdock, the patient was discharged home with a prescription for Risperdal. The patient continued to have abnormal behavior according to the family, was evaluated by her primary physician again, apparently had some visual changes, therefore, had an outpatient MRI ordered. The patient had an outpatient MRI ordered today which revealed a 1.5 cm hemorrhage. MRI stated there was a 1.5 cm early subacute intraparenchymal hemorrhage involving the left occipital lobe. There was no mass effect. The family was aware the patient had had visual changes affecting both eyes. Upon arrival to the ED the patient followed commands, appears slightly confused at times, and laughing at inappropriate times. The patient does have a history of dementia. The family thinks that the recent stress has exacerbated her dementia.She denied any weakness or numbness of the upper or lower extremities. Upon entering the ED, the patient was pleasantly conversant blood pressure initially 181 systolic had just received 20 mg of labetalol IV, and was receiving 1 mg of Ativan IV for transport to CT scanner. Blood pressure subsequently systolic decreased to 161. Preliminary imaging studies CT scan revealed a 1.2 cm hemorrhage in the left occipital region. The patient was alert and oriented follow my commands, with periods of confusion. Critical care medicine is consulted for management. History PFSH Past Medical History Autoimmune Disease: No Blood Disorders: No Anxiety: No Depression: No Heart Rhythm Problems: No Cancer: No Cardiovascular Problems: Yes High Cholesterol: Yes Chemotherapy: No Chest Pain: No Congestive Heart Failure: No Cerebrovascular Accident: Yes Diabetes: No Diminished Hearing: No Endocrine: No GERD: No Glaucoma: No Genitourinary: No Headaches: No Hepatitis: Yes Hiatal Hernia: No Hypertension: Yes Immune Disorder: No Implanted Vascular Access Dvce: Yes Musculoskeletal: No Neurologic: Yes (BRAIN ANEURYSM) Psychiatric: No Reproductive: No Respiratory: No Migraines: Yes Myocardial Infarction: No Radiation Therapy: No Seizures: No Sickle Cell Disease: No Thyroid Disease: No Ulcer: No Menopausal: Yes : 5 Para: 5 Miscarriage: 0 : 0 Past Surgical History Abdominal Surgery: No AICD: No Appendectomy: No Arteriovenous Shunt: No Cardiac Surgery: No Cholecystectomy: No Ear Surgery: No Endocrine Surgery: No Genitourinary Surgery: No Gynecologic Surgery: No Insulin Pump: No Joint Replacement: No Oral Surgery: Yes (T&A) Pacemaker: No Thoracic Surgery: Yes (RIGHT BREAST LUMPECTOMY) Tonsillectomy: Yes (T&A) Social History Alcohol Use: Yes (2 GLASSES WINE OR SCOTCH DAILY) Tobacco Use: No Substance Use: No Allergies-Medications Allergies-Medications (Allergen,Severity, Reaction): Coded Allergies: Xylocaine (Verified Allergy, Severe, ANAPHYLAXIS, 08/18/16) Uncoded Allergies: NOVACAINE (Adverse Reaction, Severe, ANAPHYLAXIS, 07/31/08) Reported Meds & Prescriptions Reported Meds & Active Scripts Active Risperdal (Risperidone) 0.5 Mg Tab 0.5 Mg PO Q12HR Reported Benazepril (Benazepril HCl) 20 Mg Tab 20 Mg PO DAILY Aspirin 325 Mg Tab 325 Mg PO DAILY Meloxicam 15 Mg Tab 15 Mg PO DAILY ROS Review of Systems ROS Limitations: Altered Mental Status Except as stated in HPI: all other systems reviewed are Neg Eyes: Positive: Visual changes HENT: No: Headaches, Lightheadedness Cardiovascular: No: Chest Pain or Discomfort Respiratory: No: Shortness of Breath Gastrointestinal: No: Nausea, Vomiting, Abdominal Pain Musculoskeletal: No: Weakness Neurologic: Positive: Change in Mentation, No: Dizziness Physical Exam Vital Signs Vital Signs Date Time Temp Pulse Resp B/P Pulse Ox O2 Delivery O2 Flow Rate FiO2 08/22/16 15:25 83 16 167/78 99 Room Air 08/22/16 15:00 222/103 08/22/16 14:40 98.0 86 20 194/85 97 Room Air Physical Exam GENERAL: Well-developed well-nourished elderly female pleasantly conversant with periods of confusion. SKIN: Warm and dry. HEAD: Atraumatic. Normocephalic. EYES: Pupils equal and round. No scleral icterus. No injection or drainage. ENT: No nasal bleeding or discharge. Mucous membranes pink and moist. Uvula midline. Airway patent NECK: Trachea midline. No JVD. CARDIOVASCULAR: Normal rate, regular rhythm. RESPIRATORY: No accessory muscle use. Clear to auscultation. Breath sounds equal bilaterally. GASTROINTESTINAL: Abdomen soft, non-tender, nondistended. No guarding. MUSCULOSKELETAL: Extremities without clubbing, cyanosis, or edema. No obvious deformities. NEUROLOGICAL: Awake and alert. RASS 0. No gross focal/sensory deficits. Follows commands in all 4 extremities, motor strength 5/5 Laboratory Laboratory Tests Test 08/22/16 15:15 White Blood Count 7.0 Red Blood Count 4.69 Hemoglobin 12.4 Hematocrit 38.1 Mean Corpuscular Volume 81.4 Mean Corpuscular Hemoglobin 26.4 Mean Corpuscular Hemoglobin 32.4 Concent Red Cell Distribution Width 15.3 Platelet Count 364 Mean Platelet Volume 8.0 Neutrophils (%) (Auto) 63.9 Lymphocytes (%) (Auto) 22.5 Monocytes (%) (Auto) 11.3 Eosinophils (%) (Auto) 1.4 Basophils (%) (Auto) 0.9 Neutrophils # (Auto) 4.5 Lymphocytes # (Auto) 1.6 Monocytes # (Auto) 0.8 Eosinophils # (Auto) 0.1 Basophils # (Auto) 0.1 CBC Comment DIFF FINAL Differential Comment Prothrombin Time 10.1 Prothromb Time International 0.9 Ratio Activated Partial 28.5 Thromboplast Time Sodium Level 132 Potassium Level 4.3 Chloride Level 95 Carbon Dioxide Level 26.0 Anion Gap 11 Blood Urea Nitrogen 12 Creatinine 0.86 Estimat Glomerular Filtration 64 Rate Random Glucose 94 Calcium Level 9.3 Total Bilirubin 0.4 Aspartate Amino Transf 20 (AST/SGOT) Alanine Aminotransferase 14 (ALT/SGPT) Alkaline Phosphatase 116 Total Protein 7.2 Albumin 4.0 Result Diagram: 08/22/16 1515 08/22/[address] brain1.2 cm hemorrhage left occipital region. Assessment and Plan Assessment and Plan Neurologic: Cerebral hemorrhage Neurosurgery consulted Dr. OlmosWyjxtk-Ulwsh-vkveud-up recommendations 08/22 CT brain-1.2 cm hemorrhage left occipital region History of CVA 07/2008-at that time MRA revealed 3 mm aneurysm left MCA Maintain systolic blood pressure less than 140mmHg will initiate a nicardipine infusion Follow-up MRI results Respiratory: Maintain O2 sat greater than 92%. O2 titrate 14 L/m nasal cannula Bronchodilators when necessary Cardiovascular: Hypertensive crisis History of coronary artery disease Consider nicardipine infusion-maintain systolic blood pressure less than 140mmHG and maintain MAP greater than 65 mmHg Patient's personal medical health researcher Dr. Arzate Obtain carotid Doppler study Hydralazine 20mg q 6 hours when necessary Metoprolol 12.5 mg BID Renal: No Bacon at this time -- Strict I/Os FEN/GI: Hyponatremia, ? chronic Bedside swallow, will initiate clear liquid diet, if no neurosurgical intervention planned Initiate 0.9 normal saline at 42cc/hr Monitor BMP, sodium level 132 Heme/ID: Monitor CBC Obtain cultures if indicated Endocrine: Glucose monitoring per ICU protocol -- SSI Prophylaxis: GI Prophylaxis Protonix DVT Prophylaxis -- SCDs No pharmacological DVT prophylaxis in the setting of a bleed Lines: Peripheral IVs 2 Dispo: my billing statement This patient remains critically ill with one or more organ systems which are or may become a threat to life. I have spent in excess of 54 minutes discontinuously in the care and management of this patient. This time is exclusive of procedures, and includes, but is not limited to, evaluation of the patient, review of the medical record, discussions with family, consultants, nursing staff, or respiratory therapy, and documentation in the medical record. Code Status Full Discussed Condition With Family, neurosurgeon,ED RN at bedside Tawana Stern MD Aug 22, 2016 17:18
--- NOTE | 2016-08-22 17:55 | PD.CONS ---
REASON FOR CONSULTATION: Left occipital intracranial hemorrhage HISTORY OF PRESENT ILLNESS: 76-year-old female with history of hypertension and progressive dementia presented with headaches and mild altered mental status. 4 days ago she was seen at the emergency department with this symptomatology and a brain CT was done and did not show any evidence of intracranial hemorrhage. She was discharged home at that time. Today she had an outpatient MRI of the brain scheduled and done at [facility] that showed a 1.5 cm intraparenchymal hemorrhage within the left occipital lobe without mass effect or midline shift. There is evidence of a prior infarction involving the left occipital lobe that is unchanged and there is exvacuo dilatation of the left occipital horn. Given these findings in the MRI, patient was brought to the emergency department. A brain CT in the ER revealed the acute intracranial hemorrhage within the left occipital lobe unchanged from the findings in the MRI. Patient denied any weakness or numbness in the upper or lower extremities. She was hypertensive on admission and was treated for this. 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 Right breast lumpectomy PAST SOCIAL HISTORY: no smoking, positive ETOH intake FAMILY HISTORY: no intracranial or spinal conditions ALLERGIES: Novocaine MEDICATIONS: Please review EMR for home medications. Active Medications Acetaminophen (Tylenol) 650 mg Q6H PRN PO; Start 08/22/16 at 16:30 Chlorhexidine Gluconate (Chlorhexidine 2% Cloth) 3 pack Taper DAILY@04 TOP; Start 08/23/16 at 04:00; Stop 08/19/17 at 03:59 Chlorhexidine Gluconate 3 pack 3 pack UNSCH PRN TOP; Start 08/22/16 at 16:30 Dextrose (D50w (Vial) Inj) 25 ml UNSCH PRN IV PUSH; Start 08/22/16 at 16:45 Docusate Sodium (Colace) 100 mg BID PO; Start 08/22/16 at 21:00 Glucagon (Glucagon Inj) 1 mg UNSCH PRN OTHER; Start 08/22/16 at 16:45 Hydralazine HCl (Apresoline Inj) 20 mg Q6H PRN IV PUSH; Start 08/22/16 at 17:30 Labetalol HCl (Trandate Inj) 20 mg ONCE ONCE IV PUSH Last administered on t 15:19; Admin Dose 20 MG; Start 08/22/16 at 15:15; Stop 08/22/16 at 15:16; Status DC Lorazepam 1 mg 1 mg ONCE ONCE IV PUSH Last administered on 08/22/16t 15:42; Admin Dose 1 MG; Start 08/22/16 at 15:30; Stop 08/22/16 at 15:31; Status DC Magnesium Oxide 800 mg 800 mg UNSCH PRN PO; Start 08/22/16 at 16:30 Magnesium Sulfate/ Sodium Chloride (Magnesium Sulfate Inj/NS Inj) 100 ml @ 50 mls/hr UNSCH PRN IV; Start 08/22/16 at 16:30 Magnesium Sulfate/ Sodium Chloride (Magnesium Sulfate Inj/NS Inj) 100 ml @ 50 mls/hr UNSCH PRN IV; Start 08/22/16 at 16:30 Metoprolol Tartrate (Lopressor) 12.5 mg Q12HR PO; Start 08/22/16 at 21:00 Miscellaneous Information 1 Q361D XX; Start 08/22/16 at 16:30 Ondansetron HCl (Zofran Inj) 4 mg Q6H PRN IV; Start 08/22/16 at 16:30 Pantoprazole Sodium (Protonix Inj) 40 mg DAILY IV; Start 08/23/16 at 09:00 Potassium Phosphate (K-Phos) 2,000 mg UNSCH PRN PO/TUBE; Start 08/22/16 at 16: 30 Potassium Phosphate 2000 mg 2,000 mg Q4H PRN PO; Start 08/22/16 at 16:30 Potassium Bicarb/ Potassium Chloride 50 meq 50 meq UNSCH PRN PO; Start at 16:30 Potassium Chloride 100 ml @ 25 mls/hr UNSCH PRN IV; Start 08/22/16 at 16:30 Potassium Chloride 100 ml @ 50 mls/hr Q2H PRN IV; Start 08/22/16 at 16:30 Potassium Chloride 100 ml @ 50 mls/hr Q2H PRN IV; Start 08/22/16 at 16:30 Potassium Chloride (KCl 20 Meq Premix Inj) 100 ml @ 50 mls/hr Q2H PRN IV; Start 08/22/16 at 16:30 Sennosides (Senokot) 17.2 mg Q12H PRN PO; Start 08/22/16 at 16:30 Sodium Chloride (NS 1000 ml Inj) 1,000 ml @ 42 mls/hr [id number] IV Last administered on 08/22/16t 16:54; Admin Dose 42 MLS/HR; Start 08/22/16 at 16:30 Sodium Chloride (NS Flush) 2 ml BID IV FLUSH; Start 08/22/16 at 21:00 Sodium Chloride (NS Flush) 2 ml UNSCH PRN IV FLUSH; Start 08/22/16 at 16:30 Sodium Phosphate/ Sodium Chloride (Sodium Phosphate Inj/NS 250 ml Inj) 250 ml @ 42 mls/hr UNSCH PRN IV; Start 08/22/16 at 16:30 REVIEW OF SYSTEMS: Constitutional: no fever or fatigue. In general good health. Eyes: no infection, blurred or double vision. Cardiovascular: no chest pain or palpitations. Gastrointestinal: no nausea, vomiting or diarrhea. Genitourinary: no incontinence or painful urination. Neurological: look at HPI Hematologic: no anemia or easy bruising Musculoskeletal: look at HPI Endocrine: no unexplained changes in weight Integumentary: not known skin lesions PHYSICAL EXAMINATION: VITALS SIGNS: Vital Signs Date Time Temp Pulse Resp B/P Pulse Ox O2 Delivery O2 Flow Rate FiO2 08/22/16 16:59 80 16 149/74 98 Room Air 08/22/16 14:40 98.0 HEENT: Normocephalic/atraumatic. No facial dysmorphic features are present. Eyes, ears, nose and throat are normal and mucous membranes are moist. SKIN: devoid of any neurocutaneous disorders. CV: heart is in regular rate and rhythm without murmur. ABD: benign, soft, flat, and without hepatosplenomegaly or tenderness. EXTREM: warm and without edema, clubbing, or cyanosis. NEUROLOGICAL EXAMINATION: MENTAL STATUS: The patient is awake, alert and oriented to 1-2 with normal speech and language. CRANIAL NERVES: Pupils are equal, round, and reactive to light accommodation. Visual kraft are full. No vertical or horizontal nyastagmus is noted and visual pursuits were smooth. Gaze is conjugate and extraocular movements are full and without limitation. Face symmetric, tongue midline. Shoulder shrug and sternocleidomastiod strength symmetric and strong. MOTOR: Muscle strength : Strength reported on scale of 1-5, 5 being full strength. R/L = Right/Left. UPPER EXTREMITY: Deltoid R5/L5, Biceps R5/L5, Triceps R5/L5, Wrist extensors R5/L5, Hand instrinsics R5/L5 . LOWER EXTREMITY: Iliopsoas R5/L5, Quadriceps R5/L5, Tib anterior R5/L5, EHL R5/L5, Gastrocnemius R5/L5 SENSORY: unremarkable to light touch and pinprick throughout. REFLEXES: 2+ and symmetric bilaterally. No hyperreflexia or pathological reflexes noted. GAIT: not tested RELEVANT LABORATORY DATA: CBC Diagram 08/22/16 15:15 BMP Diagram 08/22/16 15:15 Laboratory Tests Test 08/22/16 15:15 Prothrombin Time 10.1 SEC (9.8-11.6) Prothromb Time International 0.9 RATIO Ratio ASSESSMENT: Small acute/subacute left occipital intracranial hemorrhage without mass effect or midline shift. No neurosurgical intervention required at this time. I discussed the results of the CT and MRI with her son and daughter. RECOMMENDATIONS: 1. Follow-up head CT in 24 hours 2. Blood pressure control to keep systolic blood pressure under 140 (managed by anesthesia team) 3. Neurology consultation for mental status changes that cannot be completely explain with her intracranial findings. 4. Hold aspirin and any other blood thinners. Thank you for allowing me to participate in the care of your patient. If I can be of future assistance or should you have any questions about this or any other patient, please do not hesitate to contact me. Monroe Doe M.D. [facility] Neurosurgeon Pager [phone] Monroe Lux MD Aug 22, 2016 17:55
--- NOTE | 2016-08-22 18:53 | RADRPT ---
EXAM DATE/TIME: 08/22/2016 17:49 [facility] COMPARISON: No previous studies available for comparison. INDICATIONS : Cerebrovascular accident. MEDICAL HISTORY : Hypercholesterolemia. Hypertension. . Brain aneurysm. Migraines. Cerebrovascular accident. M easles. Hepatitis. SURGICAL HISTORY : Tonsillectomy. Breast augmentation. Right breast lumpectomy. ENCOUNTER: Initial ACUITY: 1 day PAIN SCORE: 0/10 LOCATION: Bilateral neck PEAK SYSTOLIC VELOCITIES (cm/sec): ICA/CCA RATIO: Right: 1.3 Left: 1.9 ICA: Right: 94 Left: 98 CCA: Right: 70 Left: 53 ECA: Right: 46 Left: 96 VERTEBRAL: Right: 49 antegrade Left: 56 antegrade Elevated flow velocities and ICA/CCA ratios have been found to correlate with increased degrees of vessel stenosis, calculated as percentage of diameter relative to a normal segment of distal ICA/CCA FINDINGS: RIGHT CAROTID: There is mild plaque of the carotid bulb region. No significant stenosis is visualized. The waveform s are within normal limits. LEFT CAROTID: There is mild plaque of the carotid bulb region. No significant stenosis is visualized. The waveform s are within normal limits. VERTEBRAL ARTERIES: Antegrade flow is seen in both vertebral arteries. MISCELLANEOUS: None. CONCLUSION: Mild plaque of the carotid bulb regions without a significant stenosis seen. The peak systolic veloci ties are normal. There is a mildly elevated ICA/CCA ratio on the left. Isra Lopes MD on August 22, 2016 at 18:50 Board Certified Radiologist. This report was verified electronically.
[2016-08-22] MEDS: hydrALAZINE HCL 20 MG/ML VIAL IV PUSH PRN (19:08)
[2016-08-22] MEDS ORDERED: niCARdipine 25 MG/250 ML IVPB IV SCH ×2 (19:15)
[2016-08-22 20:00] VITALS: BP 110/58; PULSE 97; RESP 17; TEMP 98; O2SAT 97
[2016-08-22] MEDS: DOCUSATE SODIUM 100 MG CAP PO SCH (20:45)
[2016-08-22] MEDS: SODIUM CHLORIDE 0.9% FLUSH 10 ML FLUSH IV FLUSH SCH (20:45)
[2016-08-22] MEDS ORDERED: METOPROLOL TARTRATE 25 MG TAB PO SCH (21:00)
[2016-08-22] MEDS: INSULIN ASPART SUPPLEMENTAL SCALE SQ SCH (21:00)
[2016-08-22] MEDS: ACETAMINOPHEN 325 MG TAB PO PRN (21:23)
[2016-08-22 22:00] VITALS: PULSE 77
[2016-08-23] VITALS (13 sets, daily range): BP systolic 124–142; BP diastolic 60–98; PULSE 72–99; RESP 15–26; TEMP 97.3–98; O2SAT 95–99
[2016-08-23 01:48] LABS: BLOOD, URINE NEG (NEG); GLUCOSE,URINE NEG (NEG); KETONE, URINE NEG (NEG); NITRITE,URINE NEG (NEG); PH, URINE 6.5 (5.0-8.5); URINE COLOR LIGHT-YELLOW (YELLW/STRAW)
[2016-08-23 01:56] LABS: COMMENT (UR) CULT NOT INDICATED; CULTURE IF INDICATED CULT NOT INDICATED
[2016-08-23] MEDS: CHLORHEXIDINE GLUCONATE 2 % 1 PACK (2 CLOTHS) TOP SCH (04:00)
[2016-08-23 04:41] LABS: HEMATOCRIT 35.7 % (35.0-46.0); MEAN CORPUSCULAR HEMOGLOBIN 26.4 PG (27.0-34.0); MEAN CORPUSCULAR HGB CONC 32.6 % (32.0-36.0); PLATELET COUNT 345 TH/MM3 (150-450); RED CELL DISTRIBUTION WIDTH 15.2 % (11.6-17.2); REVIEW FLAG FINAL; WHITE BLOOD COUNT 5.8 TH/MM3 (4.0-11.0)
[2016-08-23 05:12] LABS: BICARBONATE 24.5 MEQ/L (21.0-32.0); MAGNESIUM 1.9 MG/DL (1.5-2.5); POTASSIUM 3.7 MEQ/L (3.5-5.1)
[2016-08-23] MEDS: hydrALAZINE HCL 20 MG/ML VIAL IV PUSH PRN ×2 (06:35→19:03)
[2016-08-23] MEDS: INSULIN ASPART SUPPLEMENTAL SCALE SQ SCH ×4 (06:44→21:00)
[2016-08-23] MEDS: METOPROLOL TARTRATE 25 MG TAB PO SCH ×3 (09:21→23:04)
[2016-08-23] MEDS: PANTOPRAZOLE SODIUM 40 MG VIAL IV SCH (09:22)
[2016-08-23] MEDS: DOCUSATE SODIUM 100 MG CAP PO SCH ×2 (09:22→21:44)
[2016-08-23] MEDS: SODIUM CHLORIDE 0.9% FLUSH 10 ML FLUSH IV FLUSH SCH ×2 (09:22→21:44)
--- NOTE | 2016-08-23 10:24 | HHI.CCPN ---
Subjective Remarks/Hospital Course The patient is a 76-year-old female that presented to the ED with family after an abnormal outpatient MRI. The patient was evaluated in the emergency department several days ago for altered mental status. The patient had a workup for delirium at that time, CT the brain was negative, UA was unremarkable, metabolic profile is unremarkable and after discussion with the patient's primary physician, Dr. Murdock, the patient was discharged home with a prescription for Risperdal. The patient continued to have abnormal behavior according to the family, was evaluated by her primary physician again, apparently had some visual changes, therefore, had an outpatient MRI ordered. The patient had an outpatient MRI ordered today which revealed a 1.5 cm hemorrhage. MRI stated there was a 1.5 cm early subacute intraparenchymal hemorrhage involving the left occipital lobe. There was no mass effect. The family was aware the patient had had visual changes affecting both eyes. Upon arrival to the ED the patient followed commands, appears slightly confused at times, and laughing at inappropriate times. The patient does have a history of dementia. The family thinks that the recent stress has exacerbated her dementia.She denied any weakness or numbness of the upper or lower extremities. Upon entering the ED, the patient was pleasantly conversant blood pressure initially 181 systolic had just received 20 mg of labetalol IV, and was receiving 1 mg of Ativan IV for transport to CT scanner. Blood pressure subsequently systolic decreased to 161. Preliminary imaging studies CT scan revealed a 1.2 cm hemorrhage in the left occipital region. The patient was alert and oriented follow my commands, with periods of confusion. Critical care medicine is consulted for management. Subjective: 08/23: Tmax 97.8. The patient was maintained on a nicardipine infusion, for systolic blood pressures less than 140 mmHg, discontinued as 199. Metoprolol has been initiated 3 times a day, to maintain systolic blood pressure less than 140. Carotid Doppler study was obtained yesterday revealing no significant stenosis. Plan today for MRA today. Neurological status unchanged, patient follows commands, but mildly confused at intervals. Neurology consulted for follow-up recommendations. Plan to consult Dr. Lezama, neuropsychology for evaluation regarding dementia/delirium. Objective Vital Signs Date Time Temp Pulse Resp B/P Pulse Ox O2 Delivery O2 Flow Rate FiO2 08/23/16 06:00 72 08/23/16 04:00 97.8 20 137/67 98 08/22/16 19:00 Room Air Intake and Output 08/22/16 08/22/16 08/23/16 08:00 16:00 00:00 Intake Total 433 ml Balance 433 ml Result Diagram: 08/23/1640608/23/16[address] brain1.2 cm hemorrhage left occipital region. Objective Remarks GENERAL: Well-developed well-nourished elderly female pleasantly conversant , following commands with periods of confusion. SKIN: Warm and dry. HEAD: Atraumatic. Normocephalic. EYES: Pupils equal and round. No scleral icterus. No injection or drainage. ENT: No nasal bleeding or discharge. Mucous membranes pink and moist. Uvula midline. Airway patent NECK: Trachea midline. No JVD. CARDIOVASCULAR: Normal rate, regular rhythm. RESPIRATORY: No accessory muscle use. Clear to auscultation. Breath sounds equal bilaterally. GASTROINTESTINAL: Abdomen soft, non-tender, nondistended. No guarding. MUSCULOSKELETAL: Extremities without clubbing, cyanosis, or edema. No obvious deformities. NEUROLOGICAL: Awake and alert. RASS 0. No gross focal/sensory deficits. Follows commands in all 4 extremities, motor strength 5/[address] this afternoon Urinary Catheter: No Vascular Central Line Catheter: No A/P Assessment and Plan BP 133/78 P 88 RR 18 Neurologic: Cerebral hemorrhage Neurosurgery consulted Dr. GuerinRcoct-Jjenc-jreoqp-up recommendations 08/22 CT brain-1.2 cm hemorrhage left occipital region History of CVA 07/2008-at that time MRA revealed 3 mm aneurysm left MCA Maintain systolic blood pressure less than 140mmHg, nicardipine infusion discontinued-metoprolol 25 mg 3 times a day Follow-up MRI results From outside institution [place] MRA scheduled today per Olxjpqyzz-[id number]-[id number] results Neurology consulted-Dr. Escalona, follow-up recommendations Neuropsychology consulted- Estiven Lezama PhD Respiratory: Maintain O2 sat greater than 92%. O2 titrate 14 L/m nasal cannula. Patient currently on room air O2 sat 97% Bronchodilators when necessary Cardiovascular: Hypertensive crisis-resolved History of coronary artery disease Nicardipine infusion- Maintain systolic blood pressure <140mmHG and maintain MAP greater than 65 mmHg Patient's personal truer pinion and wheel Dr. Arzate Obtain carotid Doppler study Hydralazine 20mg q 6 hours when necessary Metoprolol 25mg q 8 hours Renal: No Bacon at this time -- Strict I/Os FEN/GI: Hyponatremia- resolved Bedside swallow, will initiate clear liquid diet, if no neurosurgical intervention planned Will discontinue 0.9 normal saline at 42cc/hr, upon resumption of diet Monitor BMP, sodium level 136 Heme/ID: Monitor CBC Obtain cultures if indicated Endocrine: Glucose monitoring per ICU protocol -- SSI Prophylaxis: GI Prophylaxis Protonix DVT Prophylaxis -- SCDs No pharmacological DVT prophylaxis in the setting of a bleed Lines: Peripheral IVs 2 Dispo: Updated medical status with daughter, patient and [facility] at bedside. Level 3 Physician Tawana Good MD Aug 23, 2016 10:24
[2016-08-23] MEDS ORDERED: MIDAZOLAM HCL 2 MG/2 ML VIAL IV ONE (12:00)
--- NOTE | 2016-08-23 12:21 | HHI.NSPN ---
Note Status Status: Progress Note Interval History Interval History 08/23 admitted yesterday after an MRI of the brain revealed a small left occipital hemorrhage. Patient is neurologically intact. Denies headaches today. Head CT today for follow-up pending. Neurology consulted due to mental status changes and explainable with radiographic findings. Labs, Micro, & Vital Signs Results Date Time Temp Pulse Resp B/P Pulse Ox O2 Delivery O2 Flow Rate FiO2 08/23/16 10:00 74 08/23/16 08:00 97.3 92 20 124/60 96 08/23/16 08:00 92 08/23/16 06:00 72 08/23/16 04:00 97.8 79 20 137/67 98 08/23/16 04:00 79 08/23/16 02:00 75 08/23/16 00:00 82 08/23/16 00:00 97.9 82 15 130/61 95 08/22/16 22:00 77 08/22/16 20:00 98.0 97 17 110/58 97 08/22/16 20:00 97 08/22/16 19:00 97 Room Air 08/22/16 16:59 80 16 149/74 98 Room Air 08/22/16 15:25 83 16 167/78 99 Room Air 08/22/16 15:00 222/103 08/22/16 14:40 98.0 86 20 194/85 97 Room Air 08/23/16 07:00 Intake Total 733 ml Balance 733 ml Constitutional Vital Signs Date Time Temp Pulse Resp B/P Pulse Ox O2 Delivery O2 Flow Rate FiO2 08/23/16 10:00 74 08/23/16 08:00 97.3 92 20 124/60 96 08/23/16 08:00 92 08/23/16 06:00 72 08/23/16 04:00 97.8 79 20 137/67 98 08/23/16 04:00 79 08/23/16 02:00 75 08/23/16 00:00 82 08/23/16 00:00 97.9 82 15 130/61 95 08/22/16 22:00 77 08/22/16 20:00 98.0 97 17 110/58 97 08/22/16 20:00 97 08/22/16 19:00 97 Room Air 08/22/16 16:59 80 16 149/74 98 Room Air 08/22/16 15:25 83 16 167/78 99 Room Air 08/22/16 15:00 222/103 08/22/16 14:40 98.0 86 20 194/85 97 Room Air 08/23/16 07:00 Intake Total 733 ml Balance 733 ml Review of Systems/Exam Exam Awake alert oriented times 3 Pupils are equal and reactive. Extraocular movements are intact Strength: 5 out of 5 in all the major muscle groups in bilateral upper and lower extremities. No pronator drift Sensory examination unremarkable to pinprick and light touch throughout Medications Current Medications Active Medications Acetaminophen (Tylenol) 650 mg Q6H PRN PO Last administered on 08/22/16 21:23 ; Admin Dose 650 MG; Start 08/22/16 at 16:30 Chlorhexidine Gluconate (Chlorhexidine 2% Cloth) 3 pack Taper DAILY@04 TOP; Start 08/23/16 at 04:00; Stop 08/19/17 at 03:59 Chlorhexidine Gluconate 3 pack 3 pack UNSCH PRN TOP; Start 08/22/16 at 16:30 Dextrose (D50w (Vial) Inj) 25 ml UNSCH PRN IV PUSH; Start 08/22/16 at 16:45 Docusate Sodium (Colace) 100 mg BID PO Last administered on 08/23/16 09:22; Admin Dose 100 MG; Start 08/22/16 at 21:00 Glucagon (Glucagon Inj) 1 mg UNSCH PRN OTHER; Start 08/22/16 at 16:45 Hydralazine HCl (Apresoline Inj) 20 mg Q6H PRN IV PUSH Last administered on 06:35; Admin Dose 20 MG; Start 08/22/16 at 17:30 Labetalol HCl (Trandate Inj) 20 mg ONCE ONCE IV PUSH Last administered on 15:19; Admin Dose 20 MG; Start 08/22/16 at 15:15; Stop 08/22/16 at 15:16; Status DC Lorazepam 1 mg 1 mg ONCE ONCE IV PUSH Last administered on 08/22/16 15:42; Admin Dose 1 MG; Start 08/22/16 at 15:30; Stop 08/22/16 at 15:31; Status DC Magnesium Oxide 800 mg 800 mg UNSCH PRN PO; Start 08/22/16 at 16:30 Magnesium Sulfate/ Sodium Chloride (Magnesium Sulfate Inj/NS Inj) 100 ml @ 50 mls/hr UNSCH PRN IV; Start 08/22/16 at 16:30 Magnesium Sulfate/ Sodium Chloride (Magnesium Sulfate Inj/NS Inj) 100 ml @ 50 mls/hr UNSCH PRN IV; Start 08/22/16 at 16:30 Metoprolol Tartrate (Lopressor) 25 mg Q8H PO Last administered on 08/23/16 09: 21; Admin Dose 25 MG; Start 08/23/16 at 08:00 Metoprolol Tartrate 12.5 mg 12.5 mg Q12HR PO Last administered on 08/22/16 20: 45; Admin Dose 12.5 MG; Start 08/22/16 at 21:00; Stop 08/23/16 at 08:03; Status DC Midazolam HCl (Versed Inj) 2 mg NOW ONCE IV; Start 08/23/16 at 12:00; Stop at 12:01; Status DC Miscellaneous Information 1 Q361D XX; Start 08/22/16 at 16:30 Nicardipine HCl/ Sodium Chloride (Cardene Inj/NS 250 ml Inj) 250 ml @ 0 mls/hr TITRATE IV Last administered on 08/22/16 19:51; Admin Dose 0 MLS/HR; Start at 19:15 Ondansetron HCl (Zofran Inj) 4 mg Q6H PRN IV; Start 08/22/16 at 16:30 Pantoprazole Sodium (Protonix Inj) 40 mg DAILY IV Last administered on 09:22; Admin Dose 40 MG; Start 08/23/16 at 09:00 Potassium Phosphate (K-Phos) 2,000 mg UNSCH PRN PO/TUBE; Start 08/22/16 at 16: 30 Potassium Phosphate 2000 mg 2,000 mg Q4H PRN PO; Start 08/22/16 at 16:30 Potassium Bicarb/ Potassium Chloride 50 meq 50 meq UNSCH PRN PO; Start at 16:30 Potassium Chloride 100 ml @ 25 mls/hr UNSCH PRN IV; Start 08/22/16 at 16:30 Potassium Chloride 100 ml @ 50 mls/hr Q2H PRN IV; Start 08/22/16 at 16:30 Potassium Chloride 100 ml @ 50 mls/hr Q2H PRN IV; Start 08/22/16 at 16:30 Potassium Chloride (KCl 20 Meq Premix Inj) 100 ml @ 50 mls/hr Q2H PRN IV; Start 08/22/16 at 16:30 Sennosides (Senokot) 17.2 mg Q12H PRN PO; Start 08/22/16 at 16:30 Sodium Chloride (NS 1000 ml Inj) 1,000 ml @ 42 mls/hr [id number] IV Last administered on 08/22/16 16:54; Admin Dose 42 MLS/HR; Start 08/22/16 at 16:30 Sodium Chloride (NS Flush) 2 ml BID IV FLUSH Last administered on 08/23/16 09: 22; Admin Dose 2 ML; Start 08/22/16 at 21:00 Sodium Chloride (NS Flush) 2 ml UNSCH PRN IV FLUSH; Start 08/22/16 at 16:30 Sodium Phosphate/ Sodium Chloride (Sodium Phosphate Inj/NS 250 ml Inj) 250 ml @ 42 mls/hr UNSCH PRN IV; Start 08/22/16 at 16:30 Medical Decision Making MDM Remarks 76-year-old female found to have an acute left occipital ICH. Neurologically stable. Observation ICU for Neuro checks every hour Plan Plan Remarks Repeat head CT today Continuing in the ICU for neuro checks every hour Monroe Lux MD Aug 23, 2016 12:21
--- NOTE | 2016-08-23 13:09 | RADRPT ---
EXAM DATE/TIME: 08/23/2016 12:08 This report includes an Addendum and supersedes previous reports for this exam. [facility] COMPARISON: CT BRAIN W/O CONTRAST, August 22, 2016, 15:49. [facility], MRI BRAIN W/O August 22, 2016 INDICATIONS : Aneurysm. MEDICAL HISTORY : Hypertension. Cardiovascular disease SURGICAL HISTORY : Tonsillectomy. Breast implants ENCOUNTER: Initial ACUITY: 1 day PAIN SCORE: 5/10 LOCATION: cranial Please note a normal MRA of the brain does not entirely exclude the possibility of a small aneurysm, nor the possibility of distal intracranial vessel disease. TECHNIQUE: 3D time of flight MRA was performed. Source images, multiplanar STS MIP, and 3D volume MIP reconstru ctions were reviewed. FINDINGS: There is excellent visualization of the major intracranial arteries out to the second-order branch ve ssels. There is no evidence for aneurysm, vessel truncation or stenosis, and no evidence for vascula r malformation. CONCLUSION: Normal examination. Almas Burgos MD on August 23, 2016 at 13:03 Board Certified Radiologist. This report was verified electronically. ADDENDUM: Upon further review, there is evidence of an aneurysm at the left middle cerebral artery bifurcation measuring 2.4 mm in transverse dimension, directed superiorly 2.1 mm. The neck measures approximately 1.8 mm. Almas Burgos MD on August 23, 2016 at 13:46 Board Certified Radiologist. This report was verified electronically.
[2016-08-23] MEDS: SODIUM CHLOR 0.9% 1000 ML INJ 1,000 ML IV SCH (15:50)
--- NOTE | 2016-08-23 16:09 | MB ---
cc: ANNIE AQUINO M.D. DATE OF CONSULTATION 08/23/16 REASON FOR CONSULTATION Cerebral hemorrhage. HISTORY OF PRESENT ILLNESS Mrs. Alex is a very nice 76-year-old woman who was in her usual state of health until last weekend. Her suffered a stroke at that time so she was under quite a bit of stress. She suddenly developed a change in mental status where she would say things that did not make sense, became disoriented. She states there is a period of time that she "blacked out" from where she had no memory, although, there was no loss of consciousness. She was seen by Dr. Murdock who had a CT scan of the brain done last Thursday which was unremarkable. She persisted with prominent mental status changes, so Dr. Murdock ordered an MRI scan of the brain which was done at [facility] that showed a 1.5 cm intraparenchymal hemorrhage in the left occipital lobe area without mass effect or midline shift. Apparently, the patient does have a history of hypertension and has been noncompliant with her antihypertensive medications, when she came to the ER had a very elevated blood pressure. She was initially placed on a Cardene and her blood pressure has been stable. The Cardene has been held. She had no focal motor symptoms but did have some visual field loss to the right side. PAST MEDICAL HISTORY She has a history of previous left occipital hemorrhagic stroke in August of 2005. She also has a known left MCA aneurysm which has been very small 3 mm and has been followed. Her past medical history is also remarkable for hypertension. A history of migraine headaches. History of right breast lumpectomy. ALLERGIES XYLOCAINE, NOVOCAINE. MEDICATIONS Medications at home were: 1. Aspirin. 2. Benazepril. 3. Meloxicam. 4. Risperdal. NEUROLOGIC EXAMINATION VITAL SIGNS: Blood pressure 124/60, pulse 92, respiratory rate is 20, temperature is 97.3 degrees. NEURO: On higher cortical function she is alert. She is oriented to the year. She had some trouble telling me the month but this may be due to comprehensive deficit. She recalls 0/3 objects in 3 minutes. She has some difficulty following complex commands due to mild comprehension deficit. She can name objects normally. Her speech is fluent. Occasionally makes some mild errors. Cranial nerves she has got a right inferior quadrantanopia on gross visual field testing. Other cranial nerves are normal. Motor exam is normal strength bilaterally. There is no drift. Fine motor skills are normal. IMAGING STUDIES CT scan of the brain shows a 1.2-cm hemorrhage left occipital region, mild dilation of the left lateral ventricle. She had an MRA of the head also which shows a very small 2.4 mm aneurysm in the left MCA trifurcation area. There is no evidence for AVM. LABORATORY DATA White count is 5800, hemoglobin 11.6, hematocrit 35.7%, platelet count 345,000. The sodium is 136, potassium 3.7, chloride is 103, CO2 24.5, the BUN is 12, creatinine 0.57, GFR is 103, glucose is 86, calcium is 8.5, AST 20, ALT is 14, PT 10.1, INR 0.9, APTT 28.5. IMPRESSION Left occipital hemorrhage. The patient's mental status changes probably related to the hemorrhage and that she has what appears to be a mild Wernicke's aphasia. RECOMMENDATIONS Continue to monitor blood pressure, keeping it within the parameters as specified. We will repeat the CT scan of the brain today as well. Hold aspirin or any antiplatelet or anticoagulation. Thank you for asking me to see this nice patient. MD RAFAEL Coyle/TARYN /3:40 PM /3:52 PM
--- NOTE | 2016-08-23 16:53 | RADRPT ---
EXAM DATE/TIME: 08/23/2016 16:24 [place] COMPARISON: CT BRAIN W/O CONTRAST, August 22, 2016, 15:49. INDICATIONS : Follow up subarachnoid hemorrhage. RADIATION DOSE: 47.90 CTDIvol (mGy) MEDICAL HISTORY : Cerebrovascular disease. Hypertension. SURGICAL HISTORY : None. ENCOUNTER: Subsequent ACUITY: 1 day PAIN SCALE: 0/10 LOCATION: cranial TECHNIQUE: Multiple contiguous axial images were obtained of the head. Using automated exposure control and adj ustment of the mA and/or kV according to patient size, radiation dose was kept as low as reasonably a chievable to obtain optimal diagnostic quality images. FINDINGS: There is no change in left posterior parietal lobe hemorrhage. Moderate degree of brain atrophy is seen. 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 There is no mass effect. CONCLUSION: No change in left posterior parietal lobe hemorrhage. Elizabeth Sy MD on August 23, 2016 at 16:40 Board Certified Radiologist. This report was verified electronically.
[2016-08-24] VITALS (16 sets, daily range): BP systolic 117–157; BP diastolic 58–76; PULSE 67–82; RESP 12–17; TEMP 97.8–98.1; O2SAT 95–98
[2016-08-24] MEDS: hydrALAZINE HCL 20 MG/ML VIAL IV PUSH PRN ×2 (03:05→16:51)
[2016-08-24] MEDS: CHLORHEXIDINE GLUCONATE 2 % 1 PACK (2 CLOTHS) TOP SCH (04:00)
[2016-08-24] MEDS: ACETAMINOPHEN 325 MG TAB PO PRN ×2 (04:05→18:34)
[2016-08-24] MEDS: INSULIN ASPART SUPPLEMENTAL SCALE SQ SCH ×4 (07:00→21:00)
[2016-08-24] MEDS: DOCUSATE SODIUM 100 MG CAP PO SCH ×2 (09:06→21:19)
[2016-08-24] MEDS: PANTOPRAZOLE SODIUM 40 MG VIAL IV SCH (09:06)
[2016-08-24] MEDS: METOPROLOL TARTRATE 25 MG TAB PO SCH ×2 (09:06→15:38)
[2016-08-24] MEDS: SODIUM CHLORIDE 0.9% FLUSH 10 ML FLUSH IV FLUSH SCH ×2 (09:06→21:19)
--- NOTE | 2016-08-24 09:17 | HHI.CCPN ---
Subjective Remarks/Hospital Course The patient is a 76-year-old female that presented to the ED with family after an abnormal outpatient MRI. The patient was evaluated in the emergency department several days ago for altered mental status. The patient had a workup for delirium at that time, CT the brain was negative, UA was unremarkable, metabolic profile is unremarkable and after discussion with the patient's primary physician, Dr. Murdock, the patient was discharged home with a prescription for Risperdal. The patient continued to have abnormal behavior according to the family, was evaluated by her primary physician again, apparently had some visual changes, therefore, had an outpatient MRI ordered. The patient had an outpatient MRI ordered today which revealed a 1.5 cm hemorrhage. MRI stated there was a 1.5 cm early subacute intraparenchymal hemorrhage involving the left occipital lobe. There was no mass effect. The family was aware the patient had had visual changes affecting both eyes. Upon arrival to the ED the patient followed commands, appears slightly confused at times, and laughing at inappropriate times. The patient does have a history of dementia. The family thinks that the recent stress has exacerbated her dementia.She denied any weakness or numbness of the upper or lower extremities. Upon entering the ED, the patient was pleasantly conversant blood pressure initially 181 systolic had just received 20 mg of labetalol IV, and was receiving 1 mg of Ativan IV for transport to CT scanner. Blood pressure subsequently systolic decreased to 161. Preliminary imaging studies CT scan revealed a 1.2 cm hemorrhage in the left occipital region. The patient was alert and oriented follow my commands, with periods of confusion. Critical care medicine is consulted for management. Subjective: 08/23: Tmax 97.8. The patient was maintained on a nicardipine infusion, for systolic blood pressures less than 140 mmHg, discontinued as 199. Metoprolol has been initiated 3 times a day, to maintain systolic blood pressure less than 140. Carotid Doppler study was obtained yesterday revealing no significant stenosis. Plan today for MRA today. Neurological status unchanged, patient follows commands, but mildly confused at intervals. Neurology consulted for follow-up recommendations. Plan to consult Dr. Lezama, neuropsychology for evaluation regarding dementia/delirium. 08/24: No acute issues overnight. EP CT showed no change in the post parietal lobe hemorrhage. Patient's mental status unchanged. Systolic blood pressure remains [id number] on current medication regimen. Patient up out of bed ambulating around room and to bathroom without difficulty. Patient tolerating diet. Objective Vital Signs Date Time Temp Pulse Resp B/P Pulse Ox O2 Delivery O2 Flow Rate FiO2 08/24/16 08:00 82 08/24/16 08:00 98.0 15 146/70 97 08/24/16 07:00 Room Air Intake and Output 08/23/16 08/23/16 08/24/16 08:00 16:00 00:00 Intake Total 300 ml 947 ml 553 ml Output Total 1050 ml Balance 300 ml -103 ml 553 ml Result Diagram: 08/23/16 0407 08/23/[address] brain1.2 cm hemorrhage left occipital region. Objective Remarks GENERAL: Well-developed well-nourished elderly female pleasantly conversant , following commands with periods of confusion. SKIN: Warm and dry. HEAD: Atraumatic. Normocephalic. EYES: Pupils equal and round. No scleral icterus. No injection or drainage. ENT: No nasal bleeding or discharge. Mucous membranes pink and moist. Uvula midline. Airway patent NECK: Trachea midline. No JVD. CARDIOVASCULAR: Normal rate, regular rhythm. RESPIRATORY: No accessory muscle use. Clear to auscultation. Breath sounds equal bilaterally. GASTROINTESTINAL: Abdomen soft, non-tender, nondistended. No guarding. MUSCULOSKELETAL: Extremities without clubbing, cyanosis, or edema. No obvious deformities. NEUROLOGICAL: Awake and alert. RASS 0. No gross focal/sensory deficits. Follows commands in all 4 extremities, motor strength 5/[address] this afternoon Urinary Catheter: No Vascular Central Line Catheter: No A/P Assessment and Plan BP 133/78 P 88 RR 18 Neurologic: Cerebral hemorrhage Neurosurgery following- Dr. Guerin 08/22 CT brain-1.2 cm hemorrhage left occipital region History of CVA 07/2008-at that time MRA revealed 3 mm aneurysm left MCA Maintain systolic blood pressure less than 140mmHg, nicardipine infusion discontinued-metoprolol 25 mg 3 times a day 08/22 MRA from [place]-normal exam 08/[address] brain-no change in post parietal lobe hemorrhage Neurology consulted-Dr. Escalona, follow-up recommendations Neuropsychology consulted- Estiven Lezama PhD Respiratory: Maintain O2 sat greater than 92%. O2 titrate 14 L/m nasal cannula. 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 Carotid Doppler study-normal velocities bilaterally Hydralazine 20mg q 6 hours when necessary Metoprolol 25mg q 8 hours Renal: No Bacon at this time -- Strict I/Os FEN/GI: Hyponatremia- resolved Bedside swallow, will initiate clear liquid diet, if no neurosurgical intervention planned Will discontinue 0.9 normal saline at 42cc/hr, upon resumption of diet Monitor BMP, sodium level 136 Heme/ID: Monitor CBC Obtain cultures if indicated Endocrine: Glucose monitoring per ICU protocol -- SSI Prophylaxis: GI Prophylaxis Protonix DVT Prophylaxis -- SCDs No pharmacological DVT prophylaxis in the setting of a bleed, patient up out of bed ambulating in room Lines: Peripheral IVs 2 Dispo: Updated medical status with daughter, 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 Level 2. Plan to transfer to hospitalist in a.m.. Transfer to floor today Physician Tawana Good MD Aug 24, 2016 09:17
--- NOTE | 2016-08-24 13:46 | HHI.PR ---
Review/Management Diagnosis left posterior parieto--occipital hemorrhage Plan BP control repeat CT brain in 1-2 days Diagnosis/Plan: Subjective Subjective Comments No acute events reported She feels her speech is improving denies focal weakness or numbness or tingling Active Medications Current Medications Medications (Trade) Dose Ordered Sig/Ravi Route Start Time Stop Time Status Last Admin (NS Flush) 2 ml UNSCH PRN IV FLUSH 08/22/16 16:30 (NS Flush) 2 ml BID IV FLUSH 08/22/16 21:00 08/24/16 09:06 (Tylenol) 650 mg Q6H PRN PO 08/22/16 16:30 08/24/16 04:05 (Protonix Inj) 40 mg DAILY IV 08/23/16 09:00 08/24/16 09:06 (Zofran Inj) 4 mg Q6H PRN IV 08/22/16 16:30 (Colace) 100 mg BID PO 08/22/16 21:00 08/24/16 09:06 (Senokot) 17.2 mg Q12H PRN PO 08/22/16 16:30 Miscellaneous Information 1 Q361D XX 08/22/16 16:30 (Chlorhexidine 2% Cloth) 3 pack Taper DAILY@04 TOP 08/23/16 04:00 08/19/17 03:59 Chlorhexidine Gluconate 3 pack 3 pack UNSCH PRN TOP 08/22/16 16:30 Potassium Chloride 100 ml @ 50 mls/hr Q2H PRN IV 08/22/16 16:30 (KCl 20 Meq Premix Inj) 100 ml @ 50 mls/hr Q2H PRN IV 08/22/16 16:30 Potassium Bicarb/ Potassium Chloride 50 meq 50 meq UNSCH PRN PO 08/22/16 16:30 Potassium Chloride 100 ml @ 25 mls/hr UNSCH PRN IV 08/22/16 16:30 Potassium Chloride 100 ml @ 50 mls/hr Q2H PRN IV 08/22/16 16:30 (Magnesium Sulfate Inj/NS Inj) 100 ml @ 50 mls/hr UNSCH PRN IV 08/22/16 16:30 Magnesium Oxide 800 mg 800 mg UNSCH PRN PO 08/22/16 16:30 (Magnesium Sulfate Inj/NS Inj) 100 ml @ 50 mls/hr UNSCH PRN IV 08/22/16 16:30 Potassium Phosphate 2000 mg 2,000 mg Q4H PRN PO 08/22/16 16:30 (Sodium Phosphate Inj/NS 250 ml Inj) 250 ml @ 42 mls/hr UNSCH PRN IV 08/22/16 16:30 (K-Phos) 2,000 mg UNSCH PRN PO/TUBE 08/22/16 16:30 (D50w (Vial) Inj) 25 ml UNSCH PRN IV PUSH 08/22/16 16:45 (Glucagon Inj) 1 mg UNSCH PRN OTHER 08/22/16 16:45 Hydralazine HCl 20 mg 20 mg Q6H PRN IV PUSH 08/22/16 17:30 08/24/16 03:05 (Cardene Inj/NS 250 ml Inj) 250 ml @ 0 mls/hr TITRATE IV 08/22/16 19:15 08/22/16 19:51 (Lopressor) 25 mg Q8H PO 08/23/16 08:00 08/24/16 09:06 Allergies Allergies Coded Allergies Xylocaine (Verified Allergy, Severe, ANAPHYLAXIS, 08/18/16) Exam I&O / VS 08/23/16 08/23/16 08/24/16 15:00 23:00 07:00 Intake Total 947 ml 553 ml 440 ml Output Total 1050 ml Balance -103 ml 553 ml 440 ml Intake Oral 640 ml 240 ml 240 ml IV Total 307 ml 313 ml 200 ml Output Urine Total 1050 ml # Voids 2 2 # Bowel Movements 0 0 Vital Signs Date Time Temp Pulse Resp B/P Pulse Ox O2 Delivery O2 Flow Rate FiO2 08/24/16 12:00 74 08/24/16 12:00 97.8 74 15 150/70 98 08/24/16 10:00 79 08/24/16 08:00 82 08/24/16 08:00 98.0 82 15 146/70 97 08/24/16 07:00 97 Room Air 08/24/16 06:00 77 08/24/16 04:30 76 14 117/58 96 08/24/16 04:00 98.0 72 17 147/72 97 08/24/16 04:00 71 08/24/16 02:00 79 08/24/16 00:30 72 15 125/58 98 08/24/16 00:00 97.8 75 15 144/65 98 08/24/16 00:00 75 08/23/16 22:00 85 08/23/16 21:32 96 08/23/16 20:00 98.0 84 20 132/63 98 08/23/16 20:00 99 08/23/16 19:00 98 Room Air 08/23/16 18:00 74 08/23/16 16:00 78 08/23/16 16:00 98.0 76 24 142/67 97 08/23/16 14:00 80 Exam Comments alert, speech is fluent with only minimal paraphasic errors CN--right inferior quadrantanopsia MOTOR--5/5 Cristian Palencia PhD MD Aug 24, 2016 13:46
--- NOTE | 2016-08-24 14:39 | HHI.NSPN ---
Note Status Status: Progress Note Interval History Interval History 08/23 admitted after an MRI of the brain revealed a small left occipital hemorrhage. Patient is neurologically intact. Denies headaches today. Head CT today for follow-up pending. Neurology consulted due to mental status changes and explainable with radiographic findings. 08/[address] done yesterday showed stable small left occipital ICH without mass effect or midline shift. Neurology was consulted. 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 Neurologically remains intact. Labs, Micro, & Vital Signs Results Date Time Temp Pulse Resp B/P Pulse Ox O2 Delivery O2 Flow Rate FiO2 08/24/16 12:00 74 08/24/16 12:00 97.8 74 15 150/70 98 08/24/16 10:00 79 08/24/16 08:00 82 08/24/16 08:00 98.0 82 15 146/70 97 08/24/16 07:00 97 Room Air 08/24/16 06:00 77 08/24/16 04:30 76 14 117/58 96 08/24/16 04:00 98.0 72 17 147/72 97 08/24/16 04:00 71 08/24/16 02:00 79 08/24/16 00:30 72 15 125/58 98 08/24/16 00:00 97.8 75 15 144/65 98 08/24/16 00:00 75 08/23/16 22:00 85 08/23/16 21:32 96 08/23/16 20:00 98.0 84 20 132/63 98 08/23/16 20:00 99 08/23/16 19:00 98 Room Air 08/23/16 18:00 74 08/23/16 16:00 78 08/23/16 16:00 98.0 76 24 142/67 97 08/24/16 07:00 Intake Total 1940 ml Output Total 1050 ml Balance 890 ml Constitutional Vital Signs Date Time Temp Pulse Resp B/P Pulse Ox O2 Delivery O2 Flow Rate FiO2 08/24/16 12:00 74 08/24/16 12:00 97.8 74 15 150/70 98 08/24/16 10:00 79 08/24/16 08:00 82 08/24/16 08:00 98.0 82 15 146/70 97 08/24/16 07:00 97 Room Air 08/24/16 06:00 77 08/24/16 04:30 76 14 117/58 96 08/24/16 04:00 98.0 72 17 147/72 97 08/24/16 04:00 71 08/24/16 02:00 79 08/24/16 00:30 72 15 125/58 98 08/24/16 00:00 97.8 75 15 144/65 98 08/24/16 00:00 75 08/23/16 22:00 85 08/23/16 21:32 96 08/23/16 20:00 98.0 84 20 132/63 98 08/23/16 20:00 99 08/23/16 19:00 98 Room Air 08/23/16 18:00 74 08/23/16 16:00 78 08/23/16 16:00 98.0 76 24 142/67 97 08/24/16 07:00 Intake Total 1940 ml Output Total 1050 ml Balance 890 ml Review of Systems/Exam Exam Awake alert oriented times 3 Pupils are equal and reactive. Extraocular movements are intact Strength: 5 out of 5 in all the major muscle groups in bilateral upper and lower extremities. No pronator drift Sensory examination unremarkable to pinprick and light touch throughout Medications Current Medications Current Medications Labetalol HCl (Trandate Inj) 20 mg ONCE ONCE IV PUSH Last administered on 08/22 15:19; Start 08/22/16 at 15:15; Stop 08/22/16 at 15:16; Status DC Lorazepam 1 mg 1 mg ONCE ONCE IV PUSH Last administered on 08/22/16 15:42; Start 08/22/16 at 15:30; Stop 08/22/16 at 15:31; Status DC Sodium Chloride (NS 1000 ml Inj) 1,000 ml @ 42 mls/hr [id number] IV Last administered on 08/23/16 15:50; Start 08/22/16 at 16:30; Stop 08/24/16 at 09:18 ; Status DC Sodium Chloride (NS Flush) 2 ml UNSCH PRN IV FLUSH FLUSH AFTER USING IV ACCESS ; Start 08/22/16 at 16:30 Sodium Chloride (NS Flush) 2 ml BID IV FLUSH Last administered on 08/24/16 09: 06; Start 08/22/16 at 21:00 Acetaminophen (Tylenol) 650 mg Q6H PRN PO PAIN 1-10 AND/OR FEVER >101F Last administered on 08/24/16 04:05; Start 08/22/16 at 16:30 Pantoprazole Sodium (Protonix Inj) 40 mg DAILY IV Last administered on 09:06; Start 08/23/16 at 09:00 Ondansetron HCl (Zofran Inj) 4 mg Q6H PRN IV NAUSEA OR VOMITING; Start at 16:30 Docusate Sodium (Colace) 100 mg BID PO Last administered on 08/24/16 09:06; Start 08/22/16 at 21:00 Sennosides (Senokot) 17.2 mg Q12H PRN PO CONSTIPATION; Start 08/22/16 at 16:30 Albuterol/ Ipratropium (Duoneb Neb) 1 ampule Q4HR NEB PRN INH WHEEZING; Start 08/22/16 at 16:30 Miscellaneous Information 1 Q361D XX ; Start 08/22/16 at 16:30 Chlorhexidine Gluconate (Chlorhexidine 2% Cloth) 3 pack Taper DAILY@04 TOP ; Start 08/23/16 at 04:00; Stop 08/19/17 at 03:59 Chlorhexidine Gluconate 3 pack 3 pack UNSCH PRN TOP HYGIENIC CARE; Start at 16:30 Potassium Chloride 100 ml @ 50 mls/hr Q2H PRN IV For Potassium 2.8 - 3.2 mEq/L ; Start 08/22/16 at 16:30 Potassium Chloride (KCl 20 Meq Premix Inj) 100 ml @ 50 mls/hr Q2H PRN IV For Potassium 2.8 - 3.2 mEq/L; Start 08/22/16 at 16:30 Potassium Bicarb/ Potassium Chloride 50 meq 50 meq UNSCH PRN PO For Potassium 3.3 - 3.5 mEq/L; Start 08/22/16 at 16:30 Potassium Chloride 100 ml @ 25 mls/hr UNSCH PRN IV For Potassium 3.3 - 3.5 mEq /L; Start 08/22/16 at 16:30 Potassium Chloride 100 ml @ 50 mls/hr Q2H PRN IV For Potassium 3.3 - 3.5 mEq/L ; Start 08/22/16 at 16:30 Magnesium Sulfate/ Sodium Chloride (Magnesium Sulfate Inj/NS Inj) 100 ml @ 50 mls/hr UNSCH PRN IV For Magnesium 0.9 - 1.1 mg/dL; Start 08/22/16 at 16:30 Magnesium Oxide 800 mg 800 mg UNSCH PRN PO For Magnesium 1.2 - 1.6 mg/dL; Start 08/22/16 at 16:30 Magnesium Sulfate/ Sodium Chloride (Magnesium Sulfate Inj/NS Inj) 100 ml @ 50 mls/hr UNSCH PRN IV For Magnesium 1.2 - 1.6 mg/dL; Start 08/22/16 at 16:30 Potassium Phosphate 2000 mg 2,000 mg Q4H PRN PO For Phosphorus < 2.5 mg/dL; Start 08/22/16 at 16:30 Sodium Phosphate/ Sodium Chloride (Sodium Phosphate Inj/NS 250 ml Inj) 250 ml @ 42 mls/hr UNSCH PRN IV For Phosphorus < 2.5 mg/dL; Start 08/22/16 at 16:30 Potassium Phosphate (K-Phos) 2,000 mg UNSCH PRN PO/TUBE SEE LABEL COMMENTS; Start 08/22/16 at 16:30 Dextrose (D50w (Vial) Inj) 25 ml UNSCH PRN IV PUSH HYPOGLYCEMIA-SEE COMMENTS; Start 08/22/16 at 16:45 Glucagon (Glucagon Inj) 1 mg UNSCH PRN OTHER HYPOGLYCEMIA-SEE COMMENTS; Start 08/22/16 at 16:45 Insulin Aspart (NovoLOG SUPPLEMENTAL SCALE) 1 ACHS SLIDING SCALE SQ ; Start at 21:00 Hydralazine HCl (Apresoline Inj) 20 mg Q6H PRN IV PUSH SBP>160, DBP>90 Last administered on 08/24/16 03:05; Start 08/22/16 at 17:30 Metoprolol Tartrate 12.5 mg 12.5 mg Q12HR PO Last administered on 08/22/16 20: 45; Start 08/22/16 at 21:00; Stop 08/23/16 at 08:03; Status DC Nicardipine HCl/ Sodium Chloride (Cardene Inj/NS 250 ml Inj) 250 ml @ 0 mls/hr TITRATE IV Last administered on 08/22/16 19:51; Start 08/22/16 at 19:15 Metoprolol Tartrate (Lopressor) 25 mg Q8H PO Last administered on 08/24/16 09: 06; Start 08/23/16 at 08:00 Midazolam HCl (Versed Inj) 2 mg NOW ONCE IV ; Start 08/23/16 at 12:00; Stop at 12:01; Status DC Medical Decision Making MDM Remarks 76-year-old female found to have an acute left occipital ICH. Neurologically stable. Patient is stable and able to be transferred to the regular floor for observation. Incidental left MCA aneurysm does not need to be treated acutely and is unrelated to the left occipital hemorrhage Dr. Escalona from neurology continues following her. Plan Plan Remarks Repeat head CT today Continuing in the ICU for neuro checks every hour Monroe Lux MD Aug 24, 2016 14:39
[2016-08-25] VITALS (8 sets, daily range): BP systolic 102–127; BP diastolic 53–84; PULSE 63–77; RESP 14–18; TEMP 96.1–97.9; O2SAT 95–100
[2016-08-25] MEDS: METOPROLOL TARTRATE 25 MG TAB PO SCH ×4 (00:47→23:40)
[2016-08-25] MEDS: CHLORHEXIDINE GLUCONATE 2 % 1 PACK (2 CLOTHS) TOP SCH (04:00)
[2016-08-25] MEDS: INSULIN ASPART SUPPLEMENTAL SCALE SQ SCH ×4 (07:00→20:53)
[2016-08-25] MEDS: PANTOPRAZOLE SODIUM 40 MG VIAL IV SCH (08:15)
[2016-08-25] MEDS: DOCUSATE SODIUM 100 MG CAP PO SCH ×2 (08:15→20:23)
[2016-08-25] MEDS: SODIUM CHLORIDE 0.9% FLUSH 10 ML FLUSH IV FLUSH SCH ×2 (08:18→20:24)
--- NOTE | 2016-08-25 12:29 | PD.HHIRCNE ---
Disclaimer Patient was given an explanation of the nature and purpose of the evaluation. Patient agreed to proceed with the evaluation and treatment plan. History Reason for Referral The patient is a 76 year old right handed female who was observed to have altered mental status with possible delirium who initially presented to the hospital where work-up including head CT was unremarkable. She returned to the hospital on 08/22/2016 and underwent brain MRI that revealed a 1/5 cm subacute intraparenchymal hemorrhage of the left parietooccipital lobe without mass effect as well as brain atrophy and periventricular white matter changes. Her medical chart indicates a past medical history of dementia, but unspecified. 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 Because of her clinical presentation , she is referred for baseline neuropsychological evaluation to assess cognitive, behavioral and emotional aspects of the injury, facilitate a differentiation between dementia and delirium, and to provide treatment recommendations. Additional Psychosocial Hx Hx Caffeine Use: No Hx Substance Use: No Level of Education: College Employment Status: Retired Prior Living Setting: Home Past Surgical/Medical History Past Surgery: Yes Major surgery in last 100 days: Unknown Hx Anesthesia Reactions: No (BREAST IMPLANTS, RIGHT BREAST LUMPECTOMY) Hx Orthopedic Surgery: No Hx Cardiac Surgery: No Hx Chest Surgery: Yes (RIGHT BREAST LUMPECTOMY) Hx Abdominal Surgery: No Hx Genitourinary Surgery: No Hx Gynecologic Surgery: No Hx Endocrine Surgery: No Hx Ear Surgery: No Hx Oral Surgery: Yes (T&A) Hx of Neuro Prob: Yes (BRAIN ANEURYSM) Hx Seizures: No Cephalgia (Headaches): No Hx Migraines: Yes Hx Head Injury: No Hx Falls: No Hx Cerebrovascular Accident: Yes (2008) Hx Dizziness: No Hx Numbness: Yes (RLE) Hx of Musculoskeletal Pro: No Hx Arthritis: Yes (HANDS) Hx Neck Problems: No Hx Back Problem: No Hx of Cardiovascular Prob: Yes Hypertension (High Blood Press: Yes Hx Clotting Problems: Yes Hx Chest Pain: No Hx Lightheadedness: No Hx Congestive Heart Failure: No Syncope (Fainting): No Hx of Respiratory Problem: No Hx of GI Problems: Yes Hx Heartburn: No Hx Gastroesophageal Reflux: No Hx Hiatal Hernia: No Hx Ulcer: No Hx Liver Disease: No Hx Inflammatory Bowel Disease: No Hx of Problems: No Hx Pelvic Problems: No Hx Genital Problems: No Hx of Immuno Disor: No Hx Autoimmune Disease: No Hx of Endocrine Problems: No Hx Thyroid Disease: No Hx Diabetes: No Hx of Eye Probl: Yes (GLASSES) Hx of Hearing or Ear Problems: No Hx Dental Problems: No Hx Psychiatric Problems: No Hx Anxiety: No Hx Depression: No Hx Sickle Cell Disease: No Hx Thrombocytopenia: No Hx Hemophilia: No Hx Chicken Pox: Yes Hx Measles: Yes Hx of Body/Medical Devices: Yes Hx Pacemaker: No Hx Internal Defibrillator: No Hx Joint Replacement: No Insulin Pump: No Hx Arteriovenous Shunt: No Hx Dental Implants: No Hx Eye Prosthesis: No Genitourinary Device: No Genitourinary Ostomy: No Gastrointestinal Ostomy: No Blood Transfusion History Will receive Blood /Blood prod: Yes Hx Blood Transfusions: No Hx Blood Transfusion Reaction: No Mental Status Assessment Orientation: oriented to Self, oriented to Time, disoriented to Place, disoriented to Situation Mental Status: WFL: Language/Interactions, Impaired: Thought processing, Attention, Learning/Memory, Problem-Solving, Visuospatial/Construction Observations Visual field confrontation testing, while difficult to complete as the patient was not entirely cooperative through no fault of her own (her neurocognitive capacity precluded cooperation) reflected a right quadrantopia. Additionally, the CAM-ICU was administered and was negative for delirium state, reflecting a decline in her baseline state, inattention, RASS of 0 but no errors on questions of thought organization. Adjustment/Coping Assessment Adjustment/Coping: None: Depression, Moderate: Anxiety, Severe: Awareness, Insight Observation In terms of emotional functioning, the patient demonstrated challenges. This patient demonstrated no signs of agitation, impulsivity or disinhibition, nor was there remarkable evidence of a formal thought disorder or psychosis. There was evidence of anxiety given her complaints of such but no evidence of depression. Thought content was free from suicidal, homicidal or paranoid ideation, and thought processes were tangentia. The patients mood was anxious , and her affect was worrisome. The patient appears to possess poor insight and awareness into her situation and within the limits of this brief evaluation, poor judgment. LTG Status: Deferred STG Status: Deferred Team Members: Neuropsychologist Effort Assessment Effort: Average Cognition Assessment Rating: Variable: Visual Perception, Impaired: Attention/Processing, Immediate & Delayed Memor, Spatial Judgement, Executive, Awareness-Insight Adjustm Observation The patient was alert and oriented to person and in a very general sense the circumstances surrounding the recent hospitalization. She knew the correct date and year, but was unable to state correct day. She was unable to report the state to be [place], nor was she able to state she is in [facility], but she did know the correct name of the hospital. The Mini-Mental State Exam was administered, and the patient obtained a score of 14 out of 30 points, which falls in the moderately impaired range. In addition, on further evaluation, specific deficits were identified. In terms of attention skills, the patient exhibited challenges. The patient was able to remain on task and remember basic but not complex verbal instructions. She required frequent repetition of instructions but she still had difficulties executing such instructions, or her tangential thought processes derailed her performance. In terms of memory functioning, the patient exhibited significant challenges. The patients initial registration of verbal information was impaired, and the patient was unable to improve their memory with repetition. After a period of delay, the patient was unable to recall this information from memory. More specifically, on the Luria Memory Words Test-Short Form, the patients trial one performance was 0 of 7 words, trial five performance was 4 of 7 words, the patients Total Learning score was 16 (well below cut-off), and the patients Delayed recall score was 0 of 7 words (well below cut-off). In terms of speech and language skills, the patient demonstrated challenges. The patients initiated spontaneous conversation throughout the assessment. Speech was characterized by adequate prosody, grammar, articulation, volume and rate. No remarkable dysnomic or paraphasic errors were noted either during conversational speech or on confrontation naming tasks. Reading recognition skills were adequate, as were writing skills in spite of her visual field cut. The patients comprehension for basic one-stage commands was generally normal, but with greater complexity her performance deteriorated. In terms of problem-solving skills, the patient exhibited challenges. The patients ability to understand abstraction reasoning was abnormal, as reflected in her inability to discern the abstract shared characteristics of objects and concepts, such as how are a horse and tiger alike. Mathematical reasoning skills were also abnormal, as reflected in her inability to complete math problems. Speed of information processing, as evaluated by both the Letter and Category Fluency Tests was also abnormal, and reflected the typical dissociation of performance often observed in persons with Alzheimer's disease. Finally, there was evidence of constructional difficulties during this brief evaluation. Summary/Diagnosis Summary Neuropsychological evaluation results are inconsistent with the normal aging process or the singular effects of emotional distress (such as anxiety or depression) on cognition. Additionally, psychometric evaluation of delirium conditions were also unremarkable at the time of the evaluation, as demonstrated by her CAM-ICU results being negative (see mental status section). More specifically, this patient demonstrates significant impairment of memory (consistent with a memory consolidation disorder), word finding difficulties, and complex reasoning impairments. The overall constellation of neuropsychological findings are consistent with a major neurocognitive disorder (formerly known as dementia). In the absence of biomedical causes for her major neurocognitive disorder (formerly known as dementia) and placed in context with her neuroimaging results of moderate atrophy, today's evaluation results are consistent with an Alzheimer's disease etiology. In addition, her recent left parietoccipital stroke appears to have left her with a inferior quadrantopia, which unfortunately she is unable to appreciate other than complaints of blurred vision due to her global neurocognitive compromise. Impressions Major Neurocognitive disorder due to Alzheimer's disease. Diagnostic criteria met according to the following: : Major Neurocognitive Disorder: This person demonstrates a significant cognitive decline from a previous level of estimated baseline performance in one or more cognitive domains (complex attention, executive function, learning and memory, language, perceptual-motor, or social cognition) based on review of medical records and patient interview, further documented by todays administration of standardized neuropsychological tests, with these cognitive deficits interfering with this patients independence in everyday activities. Diagnosis: (1) Major neurocognitive disorder due to Alzheimer's disease, probable, without behavioral disturbance Recommendations Recommendations Recommendations 1. This patient is NOT considered to be cognitively capable of making decisions of a legal, financial and medical nature due to her present and underlying neurocognitive impairments. She demonstrates the IMPAIRED ability to appreciate a situation and its likely consequences and she demonstrates the IMPAIRED ability to manipulate information rationally. She will require family input regarding all important decisions going forward. She does NOT appear capable of managing her own funds and she will need someone to make such decisions going forward. The difficulty here are several. First, the patient has limited insight and awareness of the extent of her neurocognitive impairments, and as such it is unlikely that she will accept that her impaired cognition is anything other than "anxiety over stress." Second, as she demonstrates a general "facade of adequacy" such that she covers well for her impairments through changing the subject or attributing problems she has to anxiety, her family may have difficulty acknowledging that her impairments are as significant as they are. 2. Concerning her ability to live alone and independently, this patient is functioning at a Global Deterioration Scale level of 7, which functionally means that this patient is unable to survive at home without significant outside assistance. 3. Continued medical evaluation to rule out reversible causes for her neurocognitive disorder is recommended. Pharmacological interventions designed to reduce the progression of her memory impairment is also recommended, unless medically contraindicated. 4. This patient should no longer be allowed to operate a motor vehicle. It is understood that driving requires many simultaneous skills of attending to what is happening inside and outside the car; predicting what other drivers are likely to do and responding accordingly; sustaining attention; ignoring distractions; and so forth, and these are areas of deficit this patient presents which would predict a poor outcome if she were allowed to drive. If she refuses, then it is recommended that she undergo a driving evaluation to demonstrate her behind the wheel competency. Estiven Lezama PhD August 25, 2016 12:29 pm
--- NOTE | 2016-08-25 12:44 | HHI.PR ---
Subjective Remarks overall doing fine. no headache. no chest pain. BP much improved. Objective Vitals Vital Signs Date Time Temp Pulse Resp B/P Pulse Ox O2 Delivery O2 Flow Rate FiO2 08/25/16 11:47 96.1 76 18 102/68 99 08/25/16 10:05 108/64 08/25/16 06:00 65 08/25/16 04:00 97.9 63 14 127/60 95 08/25/16 04:00 63 08/25/16 02:00 67 08/25/16 00:00 72 08/25/16 00:00 97.8 72 16 106/53 96 08/24/16 22:00 80 08/24/16 21:13 96 08/24/16 20:00 98.1 70 14 131/63 95 08/24/16 20:00 67 08/24/16 19:00 95 Room Air 08/24/16 18:00 73 08/24/16 16:16 76 08/24/16 16:00 97.9 77 12 157/76 97 08/24/16 14:00 76 I/O 08/24/16 08/24/16 08/24/16 08/25/16 08/25/16 08/25/16 07:00 15:00 23:00 07:00 15:00 23:00 Intake Total 440 ml 755 ml 480 ml 0 ml Balance 440 ml 755 ml 480 ml 0 ml Intake Oral 240 ml 755 ml 480 ml 0 ml IV Total 200 ml 0 ml 0 ml # Voids 2 1 2 1 # Bowel Movements 0 1 0 0 Result Diagram: 08/23/16 0407 08/23/16 0407 Imaging Last Impressions Head Magnetic Resonance Angiography 08/23/16 0000 Signed Impressions: Service Date/Time: Tuesday, August 23, 2016 12:08 - CONCLUSION: Normal examination. 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 The neck measures approximately 1.8 mm. Almas Burgos MD Head CT 08/23/16 0000 Signed Impressions: Service Date/Time: Tuesday, August 23, 2016 16:24 - CONCLUSION: No change in left posterior parietal lobe hemorrhage. Elizabeth Sy MD Carotid Artery Ultrasound 08/22/16 0000 Signed Impressions: Service Date/Time: Monday, August 22, 2016 17:49 - CONCLUSION: Mild plaque of the carotid bulb regions without a significant stenosis seen. The peak systolic velocities are normal. There is a mildly elevated ICA/CCA ratio on the left. Isra Lopes MD Objective Remarks GENERAL: This is a well-nourished, well-developed patient, in no apparent distress. CARDIOVASCULAR: Regular rate and regular rhythm without murmurs, gallops, or rubs. RESPIRATORY: Clear to auscultation. Breath sounds equal bilaterally. No wheezes , rales, or rhonchi. GASTROINTESTINAL: Abdomen soft, non-tender, nondistended. Normal, active bowel sounds MUSCULOSKELETAL: Extremities without clubbing, cyanosis, or edema. NEURO: Alert & Oriented x4 to person, place, time, situation. Moves all ext x4 Medications and IVs Current Medications Labetalol HCl (Trandate Inj) 20 mg ONCE ONCE IV PUSH Last administered on 08/22 15:19; Start 08/22/16 at 15:15; Stop 08/22/16 at 15:16; Status DC Lorazepam 1 mg 1 mg ONCE ONCE IV PUSH Last administered on 08/22/16 15:42; Start 08/22/16 at 15:30; Stop 08/22/16 at 15:31; Status DC Sodium Chloride (NS 1000 ml Inj) 1,000 ml @ 42 mls/hr [id number] IV Last administered on 08/23/16 15:50; Start 08/22/16 at 16:30; Stop 08/24/16 at 09:18 ; Status DC Sodium Chloride (NS Flush) 2 ml UNSCH PRN IV FLUSH FLUSH AFTER USING IV ACCESS ; Start 08/22/16 at 16:30 Sodium Chloride (NS Flush) 2 ml BID IV FLUSH Last administered on 08/25/16 08: 18; Start 08/22/16 at 21:00 Acetaminophen (Tylenol) 650 mg Q6H PRN PO PAIN 1-10 AND/OR FEVER >101F Last administered on 08/24/16 18:34; Start 08/22/16 at 16:30 Pantoprazole Sodium (Protonix Inj) 40 mg DAILY IV Last administered on 08:15; Start 08/23/16 at 09:00 Ondansetron HCl (Zofran Inj) 4 mg Q6H PRN IV NAUSEA OR VOMITING; Start at 16:30 Docusate Sodium (Colace) 100 mg BID PO Last administered on 08/25/16 08:15; Start 08/22/16 at 21:00 Sennosides (Senokot) 17.2 mg Q12H PRN PO CONSTIPATION; Start 08/22/16 at 16:30 Albuterol/ Ipratropium (Duoneb Neb) 1 ampule Q4HR NEB PRN INH WHEEZING; Start 08/22/16 at 16:30 Miscellaneous Information 1 Q361D XX ; Start 08/22/16 at 16:30 Chlorhexidine Gluconate (Chlorhexidine 2% Cloth) 3 pack Taper DAILY@04 TOP ; Start 08/23/16 at 04:00; Stop 08/19/17 at 03:59 Chlorhexidine Gluconate 3 pack 3 pack UNSCH PRN TOP HYGIENIC CARE; Start at 16:30 Potassium Chloride 100 ml @ 50 mls/hr Q2H PRN IV For Potassium 2.8 - 3.2 mEq/L ; Start 08/22/16 at 16:30 Potassium Chloride (KCl 20 Meq Premix Inj) 100 ml @ 50 mls/hr Q2H PRN IV For Potassium 2.8 - 3.2 mEq/L; Start 08/22/16 at 16:30 Potassium Bicarb/ Potassium Chloride 50 meq 50 meq UNSCH PRN PO For Potassium 3.3 - 3.5 mEq/L; Start 08/22/16 at 16:30 Potassium Chloride 100 ml @ 25 mls/hr UNSCH PRN IV For Potassium 3.3 - 3.5 mEq /L; Start 08/22/16 at 16:30 Potassium Chloride 100 ml @ 50 mls/hr Q2H PRN IV For Potassium 3.3 - 3.5 mEq/L ; Start 08/22/16 at 16:30 Magnesium Sulfate/ Sodium Chloride (Magnesium Sulfate Inj/NS Inj) 100 ml @ 50 mls/hr UNSCH PRN IV For Magnesium 0.9 - 1.1 mg/dL; Start 08/22/16 at 16:30 Magnesium Oxide 800 mg 800 mg UNSCH PRN PO For Magnesium 1.2 - 1.6 mg/dL; Start 08/22/16 at 16:30 Magnesium Sulfate/ Sodium Chloride (Magnesium Sulfate Inj/NS Inj) 100 ml @ 50 mls/hr UNSCH PRN IV For Magnesium 1.2 - 1.6 mg/dL; Start 08/22/16 at 16:30 Potassium Phosphate 2000 mg 2,000 mg Q4H PRN PO For Phosphorus < 2.5 mg/dL; Start 08/22/16 at 16:30 Sodium Phosphate/ Sodium Chloride (Sodium Phosphate Inj/NS 250 ml Inj) 250 ml @ 42 mls/hr UNSCH PRN IV For Phosphorus < 2.5 mg/dL; Start 08/22/16 at 16:30 Potassium Phosphate (K-Phos) 2,000 mg UNSCH PRN PO/TUBE SEE LABEL COMMENTS; Start 08/22/16 at 16:30 Dextrose (D50w (Vial) Inj) 25 ml UNSCH PRN IV PUSH HYPOGLYCEMIA-SEE COMMENTS; Start 08/22/16 at 16:45 Glucagon (Glucagon Inj) 1 mg UNSCH PRN OTHER HYPOGLYCEMIA-SEE COMMENTS; Start 08/22/16 at 16:45 Insulin Aspart (NovoLOG SUPPLEMENTAL SCALE) 1 ACHS SLIDING SCALE SQ ; Start at 21:00 Hydralazine HCl (Apresoline Inj) 20 mg Q6H PRN IV PUSH SBP>160, DBP>90 Last administered on 08/24/16 16:51; Start 08/22/16 at 17:30 Metoprolol Tartrate 12.5 mg 12.5 mg Q12HR PO Last administered on 08/22/16 20: 45; Start 08/22/16 at 21:00; Stop 08/23/16 at 08:03; Status DC Nicardipine HCl/ Sodium Chloride (Cardene Inj/NS 250 ml Inj) 250 ml @ 0 mls/hr TITRATE IV Last administered on 08/22/16 19:51; Start 08/22/16 at 19:15 Metoprolol Tartrate (Lopressor) 25 mg Q8H PO Last administered on 08/25/16 08: 15; Start 08/23/16 at 08:00 Midazolam HCl (Versed Inj) 2 mg NOW ONCE IV ; Start 08/23/16 at 12:00; Stop at 12:01; Status DC A/P Assessment and Plan A/P Cerebral hemorrhage Neurosurgery following- 08/22 CT brain-1.2 cm hemorrhage left occipital region History of CVA 07/2008-at that time MRA revealed 3 mm aneurysm left MCA MRA with an aneurysm at the left middle cerebral artery bifurcation 08/[address] brain-no change in post parietal lobe hemorrhage Neurology consulted-Dr. Escalona, follow-up recommendations Neuropsychology consulted- Estiven Lezama PhD Respiratory: Maintain O2 sat greater than 92%. O2 titrate 14 L/m nasal cannula. 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
--- NOTE | 2016-08-25 17:34 | HHI.PR ---
Review/Management Diagnosis left posterior parieto--occipital hemorrhage Plan repeat CT brain in am. If CT stable, ok form neurology standpoint to d/c home tomorrow Diagnosis/Plan: Subjective Subjective Comments No acute events reported Ms Alex feels her speech is improving/ walked in [place] with PT today and did well with no tendency to fall Active Medications Current Medications Medications (Trade) Dose Ordered Sig/Ravi Route Start Time Stop Time Status Last Admin (NS Flush) 2 ml UNSCH PRN IV FLUSH 08/22/16 16:30 (NS Flush) 2 ml BID IV FLUSH 08/22/16 21:00 08/25/16 08:18 (Tylenol) 650 mg Q6H PRN PO 08/22/16 16:30 08/24/16 18:34 (Zofran Inj) 4 mg Q6H PRN IV 08/22/16 16:30 (Colace) 100 mg BID PO 08/22/16 21:00 08/25/16 08:15 (Senokot) 17.2 mg Q12H PRN PO 08/22/16 16:30 Miscellaneous Information 1 Q361D XX 08/22/16 16:30 (Chlorhexidine 2% Cloth) 3 pack Taper DAILY@04 TOP 08/23/16 04:00 08/19/17 03:59 (Chlorhexidine 2% Cloth) 3 pack UNSCH PRN TOP 08/22/16 16:30 (D50w (Vial) Inj) 25 ml UNSCH PRN IV PUSH 08/22/16 16:45 (Glucagon Inj) 1 mg UNSCH PRN OTHER 08/22/16 16:45 (Apresoline Inj) 20 mg Q6H PRN IV PUSH 08/22/16 17:30 08/24/16 16:51 (Lopressor) 25 mg Q8H PO 08/23/16 08:00 08/25/16 15:11 (Protonix) 40 mg DAILY PO 08/26/16 09:00 Allergies Allergies Coded Allergies Xylocaine (Verified Allergy, Severe, ANAPHYLAXIS, 08/18/16) Exam I&O / VS 08/24/16 08/24/16 08/25/16 15:00 23:00 07:00 Intake Total 755 ml 480 ml 0 ml Balance 755 ml 480 ml 0 ml Intake Oral 755 ml 480 ml 0 ml IV Total 0 ml 0 ml # Voids 1 2 1 # Bowel Movements 1 0 0 Vital Signs Date Time Temp Pulse Resp B/P Pulse Ox O2 Delivery O2 Flow Rate FiO2 08/25/16 15:13 96.2 77 18 124/72 100 08/25/16 11:47 96.1 76 18 102/68 99 08/25/16 10:05 108/64 08/25/16 06:00 65 08/25/16 04:00 97.9 63 14 127/60 95 08/25/16 04:00 63 08/25/16 02:00 67 08/25/16 00:00 72 08/25/16 00:00 97.8 72 16 106/53 96 08/24/16 22:00 80 08/24/16 21:13 96 08/24/16 20:00 98.1 70 14 131/63 95 08/24/16 20:00 67 08/24/16 19:00 95 Room Air 08/24/16 18:00 73 Exam Comments alert, speech is better today moves BUE equally--no focal deficit Cristian Escalona PhD MD August 25, 2016 17:34
--- NOTE | 2016-08-25 18:00 | HHI.NSPN ---
(Mehran Fried) Note Status Status: Progress Note (Mehran Fried) Interval History Interval History 08/23: admitted after an MRI of the brain revealed a small left occipital hemorrhage. Patient is neurologically intact. Denies headaches today. Head CT today for follow-up pending. Neurology consulted due to mental status changes and explainable with radiographic findings. 08/24: repeat head CT done yesterday showed stable small left occipital ICH without mass effect or midline shift. Neurology was consulted. 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 Neurologically remains intact. 08/25: Patient doing well and has no complaints when seen. She is dressed in her regular clothes. Her son is at the bedside. She was transferred from the [facility] yesterday. (Mehran Fried) Labs, Micro, & Vital Signs Constitutional Vital Signs Date Time Temp Pulse Resp B/P Pulse Ox O2 Delivery O2 Flow Rate FiO2 08/25/16 15:13 96.2 77 18 124/72 100 08/25/16 11:47 96.1 76 18 102/68 99 08/25/16 10:05 108/64 08/25/16 06:00 65 08/25/16 04:00 97.9 63 14 127/60 95 08/25/16 04:00 63 08/25/16 02:00 67 08/25/16 00:00 72 08/25/16 00:00 97.8 72 16 106/53 96 08/24/16 22:00 80 08/24/16 21:13 96 08/24/16 20:00 98.1 70 14 131/63 95 08/24/16 20:00 67 08/24/16 19:00 95 Room Air 08/24/16 18:00 73 08/25/16 07:00 Intake Total 1235 ml Balance 1235 ml (Mehran Fried) Review of Systems/Exam ROS Constitutional: No fevers or chills. Neuro: No headaches, dizziness, numbness, tingling or weakness. Resp: No shortness of breath or productive cough. Cardiac: No chest pain, palpitations or irregular heart beat. GI: No abdominal pain, nausea, vomiting or bowel incontinence. : No bladder incontinence. Extremities: No pain or weakness to the arms or legs. Exam General: Thin female who appears her stated age, NAD. HEENT: Normocephalic, atraumatic. PERRLA, EOM intact. Resp: CTAB w/o W/R/R, equal excursion, non-laboured, on RA. CV: S1S2 w/RRR w/o M/G/R. GI: Abdomen soft, nontender, positive bowel sounds. Extremities: FULTON w/o difficulty, no evident discolouration, deformity except toes or clubbing. Neuro: AAOx3. Speech clear & appropriate. Follows simple commands. CN II-XII appear grossly intact. Sensation to light touch grossly intact to all extremities. Motor strength 5/5 to all major flexion & extension muscle groups. (Mehran Fried) Medications Current Medications Current Medications Medications (Trade) Dose Ordered Sig/Ravi Route Start Time Stop Time Status Last Admin (NS Flush) 2 ml UNSCH PRN IV FLUSH 08/22/16 16:30 (NS Flush) 2 ml BID IV FLUSH 08/22/16 21:00 08/25/16 08:18 (Tylenol) 650 mg Q6H PRN PO 08/22/16 16:30 08/24/16 18:34 (Zofran Inj) 4 mg Q6H PRN IV 08/22/16 16:30 (Colace) 100 mg BID PO 08/22/16 21:00 08/25/16 08:15 (Senokot) 17.2 mg Q12H PRN PO 08/22/16 16:30 Miscellaneous Information 1 Q361D XX 08/22/16 16:30 (Chlorhexidine 2% Cloth) 3 pack Taper DAILY@04 TOP 08/23/16 04:00 08/19/17 03:59 (Chlorhexidine 2% Cloth) 3 pack UNSCH PRN TOP 08/22/16 16:30 (D50w (Vial) Inj) 25 ml UNSCH PRN IV PUSH 08/22/16 16:45 (Glucagon Inj) 1 mg UNSCH PRN OTHER 08/22/16 16:45 (Apresoline Inj) 20 mg Q6H PRN IV PUSH 08/22/16 17:30 08/24/16 16:51 (Lopressor) 25 mg Q8H PO 08/23/16 08:00 08/25/16 15:11 (Protonix) 40 mg DAILY PO 08/26/16 09:00 (Mehran Fried) Medical Decision Making MDM Remarks Acute left occipital ICH Incidental left MCA aneurysm does not need to be treated acutely and is unrelated to the left occipital hemorrhage Neurologically intact (Mehran Fried) Plan Plan Remarks Patient able to be discharged from [facility] perspective Follow up as an outpatient (Mehran Fried) Attending Statement Ms. Alex is awake and alert Mild confusion Mild speech hesitancy Extraocular movements intact Facial motor movement symmetric She is ambulating well without assist Sensory to light touch and motor function appears intact all extremities Imaging studies reviewed Discussed with the patient Stable for discharge home in the a.m. from neurosurgery standpoint No neurosurgery follow-up anticipated at this time. (Hussein Garcia MD) Mehran Fried August 25, 2016 17:59 Hussein Garcia MD August 25, 2016 22:02
[2016-08-26] VITALS: BP 122/71; PULSE 70; RESP 16; O2SAT 96
[2016-08-26] MEDS: CHLORHEXIDINE GLUCONATE 2 % 1 PACK (2 CLOTHS) TOP SCH (03:41)
[2016-08-26 04:00] VITALS: BP 125/71; PULSE 70; RESP 16; TEMP 96.5; O2SAT 98
[2016-08-26] MEDS: INSULIN ASPART SUPPLEMENTAL SCALE SQ SCH ×4 (06:09→21:45)
[2016-08-26 08:01] VITALS: BP 125/62; PULSE 73; RESP 18; TEMP 97.4; O2SAT 97
[2016-08-26] MEDS: PANTOPRAZOLE SOD 40 MG DELAYED RELEASE TAB PO SCH (08:31)
[2016-08-26] MEDS: METOPROLOL TARTRATE 25 MG TAB PO SCH ×3 (08:31→21:33)
[2016-08-26] MEDS: DOCUSATE SODIUM 100 MG CAP PO SCH ×2 (08:31→21:33)
[2016-08-26] MEDS: SODIUM CHLORIDE 0.9% FLUSH 10 ML FLUSH IV FLUSH SCH ×2 (08:38→21:33)
--- NOTE | 2016-08-26 08:59 | HHI.PR ---
Subjective Remarks resting comfortably with no distress. denies pain. BP stable. daughter at the bedside. Objective Vitals Vital Signs Date Time Temp Pulse Resp B/P Pulse Ox O2 Delivery O2 Flow Rate FiO2 08/26/16 08:01 97.4 73 18 125/62 97 08/26/16 07:20 Room Air 08/26/16 04:00 96.5 70 16 125/71 98 08/26/16 00:00 70 16 122/71 96 08/25/16 19:00 75 17 118/84 100 08/25/16 15:13 96.2 77 18 124/72 100 08/25/16 11:47 96.1 76 18 102/68 99 08/25/16 10:05 108/64 I/O 08/25/16 08/25/16 08/25/16 08/26/16 08/26/16 08/26/16 07:00 15:00 23:00 07:00 15:00 23:00 Intake Total 0 ml 480 ml 480 ml 240 ml Balance 0 ml 480 ml 480 ml 240 ml Intake Oral 0 ml 480 ml 480 ml 240 ml IV Total 0 ml # Voids 1 1 3 1 # Bowel Movements 0 0 0 0 Result Diagram: 08/23/16 0407 08/23/16 0407 Imaging Last Impressions Head Magnetic Resonance Angiography 08/23/16 0000 Signed Impressions: Service Date/Time: Tuesday, August 23, 2016 12:08 - CONCLUSION: Normal examination. 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 The neck measures approximately 1.8 mm. Almas Burgos MD Head CT 08/23/16 0000 Signed Impressions: Service Date/Time: Tuesday, August 23, 2016 16:24 - CONCLUSION: No change in left posterior parietal lobe hemorrhage. Elizabeth Sy MD Carotid Artery Ultrasound 08/22/16 0000 Signed Impressions: Service Date/Time: Monday, August 22, 2016 17:49 - CONCLUSION: Mild plaque of the carotid bulb regions without a significant stenosis seen. The peak systolic velocities are normal. There is a mildly elevated ICA/CCA ratio on the left. Isra Lopes MD Objective Remarks GENERAL: This is a well-nourished, well-developed patient, in no apparent distress. CARDIOVASCULAR: Regular rate and regular rhythm without murmurs, gallops, or rubs. RESPIRATORY: Clear to auscultation. Breath sounds equal bilaterally. No wheezes , rales, or rhonchi. GASTROINTESTINAL: Abdomen soft, non-tender, nondistended. Normal, active bowel sounds MUSCULOSKELETAL: Extremities without clubbing, cyanosis, or edema. NEURO: Alert & Oriented x4 to person, place, time, situation. Moves all ext x4 Procedures none Medications and IVs Current Medications Labetalol HCl (Trandate Inj) 20 mg ONCE ONCE IV PUSH Last administered on 08/22 15:19; Start 08/22/16 at 15:15; Stop 08/22/16 at 15:16; Status DC Lorazepam 1 mg 1 mg ONCE ONCE IV PUSH Last administered on 08/22/16 15:42; Start 08/22/16 at 15:30; Stop 08/22/16 at 15:31; Status DC Sodium Chloride (NS 1000 ml Inj) 1,000 ml @ 42 mls/hr [id number] IV Last administered on 08/23/16 15:50; Start 08/22/16 at 16:30; Stop 08/24/16 at 09:18 ; Status DC Sodium Chloride (NS Flush) 2 ml UNSCH PRN IV FLUSH FLUSH AFTER USING IV ACCESS ; Start 08/22/16 at 16:30 Sodium Chloride (NS Flush) 2 ml BID IV FLUSH Last administered on 08/25/16 20: 24; Start 08/22/16 at 21:00 Acetaminophen (Tylenol) 650 mg Q6H PRN PO PAIN 1-10 AND/OR FEVER >101F Last administered on 08/24/16 18:34; Start 08/22/16 at 16:30 Pantoprazole Sodium (Protonix Inj) 40 mg DAILY IV Last administered on 08:15; Start 08/23/16 at 09:00; Stop 08/25/16 at 12:40; Status DC Ondansetron HCl (Zofran Inj) 4 mg Q6H PRN IV NAUSEA OR VOMITING; Start at 16:30 Docusate Sodium (Colace) 100 mg BID PO Last administered on 5/2/17at 08:31; Start 08/22/16 at 21:00 Sennosides (Senokot) 17.2 mg Q12H PRN PO CONSTIPATION; Start 08/22/16 at 16:30 Albuterol/ Ipratropium (Duoneb Neb) 1 ampule Q4HR NEB PRN INH WHEEZING; Start 08/22/16 at 16:30 Miscellaneous Information 1 Q361D XX ; Start 08/22/16 at 16:30 Chlorhexidine Gluconate (Chlorhexidine 2% Cloth) 3 pack Taper DAILY@04 TOP ; Start 08/23/16 at 04:00; Stop 08/19/17 at 03:59 Chlorhexidine Gluconate 3 pack 3 pack UNSCH PRN TOP HYGIENIC CARE; Start at 16:30 Potassium Chloride 100 ml @ 50 mls/hr Q2H PRN IV For Potassium 2.8 - 3.2 mEq/L ; Start 08/22/16 at 16:30; Stop 08/25/16 at 12:40; Status DC Potassium Chloride (KCl 20 Meq Premix Inj) 100 ml @ 50 mls/hr Q2H PRN IV For Potassium 2.8 - 3.2 mEq/L; Start 08/22/16 at 16:30; Stop 08/25/16 at 12:41; Status DC Potassium Bicarb/ Potassium Chloride 50 meq 50 meq UNSCH PRN PO For Potassium 3.3 - 3.5 mEq/L; Start 08/22/16 at 16:30; Stop 08/25/16 at 12:41; Status DC Potassium Chloride 100 ml @ 25 mls/hr UNSCH PRN IV For Potassium 3.3 - 3.5 mEq /L; Start 08/22/16 at 16:30; Stop 08/25/16 at 12:41; Status DC Potassium Chloride 100 ml @ 50 mls/hr Q2H PRN IV For Potassium 3.3 - 3.5 mEq/L ; Start 08/22/16 at 16:30; Stop 08/25/16 at 12:41; Status DC Magnesium Sulfate/ Sodium Chloride (Magnesium Sulfate Inj/NS Inj) 100 ml @ 50 mls/hr UNSCH PRN IV For Magnesium 0.9 - 1.1 mg/dL; Start 08/22/16 at 16:30; Stop 08/25/16 at 12:41; Status DC Magnesium Oxide 800 mg 800 mg UNSCH PRN PO For Magnesium 1.2 - 1.6 mg/dL; Start 08/22/16 at 16:30; Stop 08/25/16 at 12:41; Status DC Magnesium Sulfate/ Sodium Chloride (Magnesium Sulfate Inj/NS Inj) 100 ml @ 50 mls/hr UNSCH PRN IV For Magnesium 1.2 - 1.6 mg/dL; Start 08/22/16 at 16:30; Stop 08/25/16 at 12:41; Status DC Potassium Phosphate 2000 mg 2,000 mg Q4H PRN PO For Phosphorus < 2.5 mg/dL; Start 08/22/16 at 16:30; Stop 08/25/16 at 12:42; Status DC Sodium Phosphate/ Sodium Chloride (Sodium Phosphate Inj/NS 250 ml Inj) 250 ml @ 42 mls/hr UNSCH PRN IV For Phosphorus < 2.5 mg/dL; Start 08/22/16 at 16:30; Stop 08/25/16 at 12:42; Status DC Potassium Phosphate (K-Phos) 2,000 mg UNSCH PRN PO/TUBE SEE LABEL COMMENTS; Start 08/22/16 at 16:30; Stop 08/25/16 at 12:42; Status DC Dextrose (D50w (Vial) Inj) 25 ml UNSCH PRN IV PUSH HYPOGLYCEMIA-SEE COMMENTS; Start 08/22/16 at 16:45 Glucagon (Glucagon Inj) 1 mg UNSCH PRN OTHER HYPOGLYCEMIA-SEE COMMENTS; Start 08/22/16 at 16:45 Insulin Aspart (NovoLOG SUPPLEMENTAL SCALE) 1 ACHS SLIDING SCALE SQ ; Start at 21:00 Hydralazine HCl (Apresoline Inj) 20 mg Q6H PRN IV PUSH SBP>160, DBP>90 Last administered on 08/24/16 16:51; Start 08/22/16 at 17:30 Metoprolol Tartrate 12.5 mg 12.5 mg Q12HR PO Last administered on 08/22/16 20: 45; Start 08/22/16 at 21:00; Stop 08/23/16 at 08:03; Status DC Nicardipine HCl/ Sodium Chloride (Cardene Inj/NS 250 ml Inj) 250 ml @ 0 mls/hr TITRATE IV Last administered on 08/22/16 19:51; Start 08/22/16 at 19:15; Stop 08/25/16 at 12:42; Status DC Metoprolol Tartrate (Lopressor) 25 mg Q8H PO Last administered on 08/26/16 08: 31; Start 08/23/16 at 08:00 Midazolam HCl (Versed Inj) 2 mg NOW ONCE IV ; Start 08/23/16 at 12:00; Stop at 12:01; Status DC Pantoprazole Sodium (Protonix) 40 mg DAILY PO Last administered on 08/26/16 08: 31; Start 08/26/16 at 09:00 A/P Assessment and Plan A/P Cerebral hemorrhage 08/22 CT brain-1.2 cm hemorrhage left occipital region History of CVA 07/2008-at that time MRA revealed 3 mm aneurysm left MCA MRA with an aneurysm at the left middle cerebral artery bifurcation 08/[address] brain-no change in post parietal lobe hemorrhage neurosurgery and neurology follow-ups appreciated; awaiting repeated CT head today. Neuropsychology consulted- Estiven Lezama PhD Respiratory: Maintain O2 sat greater than 92%. O2 titrate 14 L/m nasal cannula. 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 Hyponatremia- resolved Prophylaxis: GI Prophylaxis Protonix DVT Prophylaxis -- SCDs No pharmacological DVT prophylaxis in the setting of a bleed, patient up out of bed ambulating in room PT evaluation appreciated. Discharge Planning likely dc home later today if CT head stable. see med list. f/u; pcp and neurology. d/w the patient and her daughter at the bedside. case management for [facility]. time spent 31 min. Mango Alcala MD August 26, 2016 08:58
[2016-08-26] MEDS ORDERED: METO25TA3 PO (09:01)
--- NOTE | 2016-08-26 09:03 | HHI.DCPOC ---
Discharge Care Plan Diagnosis: (1) Intraparenchymal hemorrhage of brain Your Health Problems Are: Difficulty with ADL Goals to Promote Your Health * To prevent worsening of your condition and complications * To maintain your health at the optimal level Directions to Meet Your Goals Take your medications as prescribed Follow your dietary instruction Follow activity as directed Keep your appointments as scheduled Take your immunizations and boosters as scheduled If your symptoms worsen call your PCP, if no PCP go to Urgent Care Center or Emergency Room Smoking is Dangerous to Your Health. Avoid second hand smoke Call the 24-hour hour crisis hotline for domestic abuse at Mango Alcala MD August 26, 2016 09:03
--- NOTE | 2016-08-26 09:04 | HHI.FF ---
Face to Face Verification Diagnosis: (1) Intraparenchymal hemorrhage of brain Speech Therapy Order: To Improve: Cognitive skills Home Health Nursing Order: Medical education Signs/symptoms of disease process Medication education-adverse effect Nursing assessment with vital signs I have seen patient Bridgette Alex on 08/26/16. My clinical findings support the need for the requested home health care services because: Ltd mobility - disease progression I certify that my clinical findings support that this patient is homebound because: Unsteady gait/balance Mango Alcala MD August 26, 2016 09:04
--- NOTE | 2016-08-26 09:04 | HHI.DS ---
Discharge Summary Admission Date Aug 22, 2016 at 16:35 Discharge Date: August 26, 2016 Admitting Diagnosis intraparenchymal hemorrhage, altered mental status, delirium (1) Intraparenchymal hemorrhage of brain ICD Code: I61.9 Diagnosis: Principal Procedures none Brief History - From Admission The patient is a 76-year-old female that presented to the ED with family after an abnormal outpatient MRI. The patient was evaluated in the emergency department several days ago for altered mental status. The patient had a workup for delirium at that time, CT the brain was negative, UA was unremarkable, metabolic profile is unremarkable and after discussion with the patient's primary physician, Dr. Murdock, the patient was discharged home with a prescription for Risperdal. The patient continued to have abnormal behavior according to the family, was evaluated by her primary physician again, apparently had some visual changes, therefore, had an outpatient MRI ordered. The patient had an outpatient MRI ordered today which revealed a 1.5 cm hemorrhage. MRI stated there was a 1.5 cm early subacute intraparenchymal hemorrhage involving the left occipital lobe. There was no mass effect. The family was aware the patient had had visual changes affecting both eyes. Upon arrival to the ED the patient followed commands, appears slightly confused at times, and laughing at inappropriate times. The patient does have a history of dementia. The family thinks that the recent stress has exacerbated her dementia.She denied any weakness or numbness of the upper or lower extremities. Upon entering the ED, the patient was pleasantly conversant blood pressure initially 181 systolic had just received 20 mg of labetalol IV, and was receiving 1 mg of Ativan IV for transport to CT scanner. Blood pressure subsequently systolic decreased to 161. Preliminary imaging studies CT scan revealed a 1.2 cm hemorrhage in the left occipital region. The patient was alert and oriented follow my commands, with periods of confusion. Critical care medicine is consulted for management. History PFSH Past Medical History Autoimmune Disease: No Blood Disorders: No Anxiety: No Depression: No Heart Rhythm Problems: No Cancer: No Cardiovascular Problems: Yes High Cholesterol: Yes Chemotherapy: No Chest Pain: No Congestive Heart Failure: No Cerebrovascular Accident: Yes Diabetes: No Diminished Hearing: No Endocrine: No GERD: No Glaucoma: No Genitourinary: No Headaches: No Hepatitis: Yes Hiatal Hernia: No Hypertension: Yes Immune Disorder: No Implanted Vascular Access Dvce: Yes Musculoskeletal: No Neurologic: Yes (BRAIN ANEURYSM) Psychiatric: No Reproductive: No Respiratory: No Migraines: Yes Myocardial Infarction: No Radiation Therapy: No Seizures: No Sickle Cell Disease: No Thyroid Disease: No Ulcer: No Menopausal: Yes : 5 Para: 5 Miscarriage: 0 : 0 Past Surgical History Abdominal Surgery: No AICD: No Appendectomy: No Arteriovenous Shunt: No Cardiac Surgery: No Cholecystectomy: No Ear Surgery: No Endocrine Surgery: No Genitourinary Surgery: No Gynecologic Surgery: No Insulin Pump: No Joint Replacement: No Oral Surgery: Yes (T&A) Pacemaker: No Thoracic Surgery: Yes (RIGHT BREAST LUMPECTOMY) Tonsillectomy: Yes (T&A) Social History Alcohol Use: Yes (2 GLASSES WINE OR SCOTCH DAILY) Tobacco Use: No Substance Use: No Allergies-Medications Allergies-Medications (Allergen,Severity, Reaction): Coded Allergies: Xylocaine (Verified Allergy, Severe, ANAPHYLAXIS, 08/18/16) Uncoded Allergies: NOVACAINE (Adverse Reaction, Severe, ANAPHYLAXIS, 07/31/08) Reported Meds & Prescriptions Reported Meds & Active Scripts Active Risperdal (Risperidone) 0.5 Mg Tab 0.5 Mg PO Q12HR Reported Benazepril (Benazepril HCl) 20 Mg Tab 20 Mg PO DAILY Aspirin 325 Mg Tab 325 Mg PO DAILY Meloxicam 15 Mg Tab 15 Mg PO DAILY ROS Review of Systems ROS Limitations: Altered Mental Status Except as stated in HPI: all other systems reviewed are Neg Eyes: Positive: Visual changes HENT: No: Headaches, Lightheadedness Cardiovascular: No: Chest Pain or Discomfort Respiratory: No: Shortness of Breath Gastrointestinal: No: Nausea, Vomiting, Abdominal Pain Musculoskeletal: No: Weakness Neurologic: Positive: Change in Mentation, No: Dizziness CBC/BMP: 08/23/16 0407 08/23/16 0407 Imaging Last Impressions Head Magnetic Resonance Angiography 08/23/16 0000 Signed Impressions: Service Date/Time: Tuesday, August 23, 2016 12:08 - CONCLUSION: Normal examination. Almas Burogs MD ADDENDUM: Upon further review, there is evidence of an aneurysm at the left middle cerebral artery bifurcation measuring 2.4 mm in transverse dimension, directed superiorly 2.1 mm. The neck measures approximately 1.8 mm. Almas Bugros MD Head CT 08/23/16 0000 Signed Impressions: Service Date/Time: Tuesday, August 23, 2016 16:24 - CONCLUSION: No change in left posterior parietal lobe hemorrhage. Elizabeth Sy MD Carotid Artery Ultrasound 08/22/16 0000 Signed Impressions: Service Date/Time: Monday, August 22, 2016 17:49 - CONCLUSION: Mild plaque of the carotid bulb regions without a significant stenosis seen. The peak systolic velocities are normal. There is a mildly elevated ICA/CCA ratio on the left. Isra Lopes MD PE at Discharge GENERAL: This is a well-nourished, well-developed patient, in no apparent distress. CARDIOVASCULAR: Regular rate and regular rhythm without murmurs, gallops, or rubs. RESPIRATORY: Clear to auscultation. Breath sounds equal bilaterally. No wheezes , rales, or rhonchi. GASTROINTESTINAL: Abdomen soft, non-tender, nondistended. Normal, active bowel sounds MUSCULOSKELETAL: Extremities without clubbing, cyanosis, or edema. NEURO: Alert & Oriented x4 to person, place, time, situation. Moves all ext x4 Hospital Course Cerebral hemorrhage 08/22 CT brain-1.2 cm hemorrhage left occipital region History of CVA 07/2008-at that time MRA revealed 3 mm aneurysm left MCA MRA with an aneurysm at the left middle cerebral artery bifurcation 08/[address] brain-no change in post parietal lobe hemorrhage neurosurgery and neurology follow-ups appreciated; awaiting repeated CT head today. Neuropsychology consulted- Estiven Lezama PhD Respiratory: Maintain O2 sat greater than 92%. O2 titrate 14 L/m nasal cannula. 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 Hyponatremia- resolved Prophylaxis: GI Prophylaxis Protonix DVT Prophylaxis -- SCDs No pharmacological DVT prophylaxis in the setting of a bleed, patient up out of bed ambulating in room PT evaluation appreciated. Pt Condition on Discharge: Good Discharge Disposition: Disch w/ Home Health Serv Discharge Time: > 30 minutes Discharge Instructions DIET: Follow Instructions for: Heart Healthy Diet Activities you can perform: Regular-No Restrictions Follow up Referrals: Neurology PCP Follow-up New Medications: Metoprolol Tartrate (Metoprolol Tartrate) 25 Mg Tab 25 MG PO BID hypertension Days 30 Ref 0 TAB Discontinued Medications: Aspirin (Aspirin) 325 Mg Tab 325 MG PO DAILY Ref 0 TAB Benazepril (Benazepril) 20 Mg Tab 20 MG PO DAILY Blood Pressure Management Ref 0 TAB Meloxicam (Meloxicam) 15 Mg Tab 15 MG PO DAILY Arthritis Pain Ref 0 TAB Mango Alcala MD August 26, 2016 09:03
--- NOTE | 2016-08-26 09:06 | HHI.PR ---
Review/Management Diagnosis left posterior parieto--occipital hemorrhage Plan repeat CT brain this am. He BP has been normal past two days. If CT stable, ok form neurology standpoint to d/c home tomorrow follow up with me as outpatient in 2-3 weeks Diagnosis/Plan: Subjective Subjective Comments No acute events reported No headache Balance improving and was able to walk in halls with assistance with her son without difficulty last PM Active Medications Current Medications Medications (Trade) Dose Ordered Sig/Ravi Route Start Time Stop Time Status Last Admin (NS Flush) 2 ml UNSCH PRN IV FLUSH 08/22/16 16:30 (NS Flush) 2 ml BID IV FLUSH 08/22/16 21:00 08/25/16 20:24 (Tylenol) 650 mg Q6H PRN PO 08/22/16 16:30 08/24/16 18:34 (Zofran Inj) 4 mg Q6H PRN IV 08/22/16 16:30 (Colace) 100 mg BID PO 08/22/16 21:00 08/26/16 08:31 (Senokot) 17.2 mg Q12H PRN PO 08/22/16 16:30 Miscellaneous Information 1 Q361D XX 08/22/16 16:30 (Chlorhexidine 2% Cloth) 3 pack Taper DAILY@04 TOP 08/23/16 04:00 08/19/17 03:59 (Chlorhexidine 2% Cloth) 3 pack UNSCH PRN TOP 08/22/16 16:30 (D50w (Vial) Inj) 25 ml UNSCH PRN IV PUSH 08/22/16 16:45 (Glucagon Inj) 1 mg UNSCH PRN OTHER 08/22/16 16:45 (Apresoline Inj) 20 mg Q6H PRN IV PUSH 08/22/16 17:30 08/24/16 16:51 (Lopressor) 25 mg Q8H PO 08/23/16 08:00 08/26/16 08:31 (Protonix) 40 mg DAILY PO 08/26/16 09:00 08/26/16 08:31 Allergies Allergies Coded Allergies Xylocaine (Verified Allergy, Severe, ANAPHYLAXIS, 08/18/16) Exam I&O / VS 08/25/16 08/25/16 08/26/16 15:00 23:00 07:00 Intake Total 480 ml 480 ml 240 ml Balance 480 ml 480 ml 240 ml Intake Oral 480 ml 480 ml 240 ml # Voids 1 3 1 # Bowel Movements 0 0 0 Vital Signs Date Time Temp Pulse Resp B/P Pulse Ox O2 Delivery O2 Flow Rate FiO2 08/26/16 08:01 97.4 73 18 125/62 97 08/26/16 07:20 Room Air 08/26/16 04:00 96.5 70 16 125/71 98 08/26/16 00:00 70 16 122/71 96 08/25/16 19:00 75 17 118/84 100 08/25/16 15:13 96.2 77 18 124/72 100 08/25/16 11:47 96.1 76 18 102/68 99 08/25/16 10:05 108/64 Exam Comments alert, speech is essentially normal today--I don't detect any paraphasic errors CN--right inferior quadrantanopsia improving moves BUE equally--no focal deficit Cristian Escalona PhD August 26, 2016 09:06
--- NOTE | 2016-08-26 09:33 | RADRPT ---
EXAM DATE/TIME: 08/26/2016 09:10 [facility] COMPARISON: CT BRAIN W/O CONTRAST, August 22, 2016, 15:49. CT BRAIN W/O CONTRAST, August 23, 2016, 16:24. INDICATIONS : Follow up cerebral hemorrhage. RADIATION DOSE: 56.79 CTDIvol (mGy) MEDICAL HISTORY : Cardiovascular disease. Hypertension. SURGICAL HISTORY : None. ENCOUNTER: Subsequent ACUITY: 4 - 6 days PAIN SCALE: 0/10 LOCATION: cranial TECHNIQUE: Multiple contiguous axial images were obtained of the head. Using automated exposure control and adj ustment of the mA and/or kV according to patient size, radiation dose was kept as low as reasonably a chievable to obtain optimal diagnostic quality images. FINDINGS: Small parenchymal hemorrhage in the high convexity left parietal region is unchanged. There is some m inimal subarachnoid blood in the contralateral right parietal high convexity region. Patchy diminishe d white matter attenuation is stable. Ventricular size and asymmetry are stable. Extracranial structu res are stable benign and intact. CONCLUSION: Stable left parietal parenchymal hematoma. Small amount of new right parietal subarachnoid blood. Isra Vasquez MD on August 26, 2016 at 9:26 Board Certified Radiologist. This report was verified electronically.
[2016-08-26 12:00] VITALS: BP 122/60; PULSE 74; RESP 18; TEMP 97.7; O2SAT 98
--- NOTE | 2016-08-26 14:34 | HHI.PR ---
Addendum To [facility] Progress Not Reason for addendum: Additonal documentation (repeated CT brain today with new small amount of subarachnoid hemorrhage; d/w ; will check CTA brain today and follow-up CT head tomorrow. dc planning pending the result of imaging studies and clinical course.) Mango Alcala MD August 26, 2016 14:34
--- NOTE | 2016-08-26 15:16 | EC ---
Study Study Date:08/26/2016 STUDY CONCLUSIONS SUMMARY - Left ventricle: The cavity size was normal. Systolic function was normal. The estimated ejection fraction was in the range of 60% to 65%. Although no diagnostic regional wall motion abnormality was identified, this possibility cannot be completely excluded on the basis of this study. - Aortic valve: Mild regurgitation. - Tricuspid valve: Mild regurgitation. If LV function is below 40, please consider prescribing an ACEI or ARB or document rationale for non-use. PROCEDURE DATA STUDY STATUS: Elective. Procedure: Transthoracic echocardiography. Image quality was good. Scanning was performed from the parasternal, apical, and subcostal acoustic windows. Study completion: The patient tolerated the procedure well. Transthoracic echocardiography. M-mode, complete 2D, complete spectral Doppler, and color Doppler. Height: Height: 58in. Weight: Weight: 91.8lb. Body mass index: BMI: 19.2kg/m^2. Body surface area: BSA: 1.31m^2. Patient status: Inpatient. CARDIAC ANATOMY LEFT VENTRICLE: The cavity size was normal. Systolic function was normal. The estimated ejection fraction was in the range of 60% to 65%. Although no diagnostic regional wall motion abnormality was identified, this possibility cannot be completely excluded on the basis of this study. AORTIC VALVE: Trileaflet; mildly calcified leaflets. Doppler: There was no stenosis. Mild regurgitation. MITRAL VALVE: The valve appears to be grossly normal. Doppler: There was no evidence for stenosis. Trace regurgitation. Valve area by pressure half-time: 4cm^2. Indexed valve area by pressure half-time: 3.05cm^2/m^2. Peak gradient: 2mm Hg (D). LEFT ATRIUM: The atrium was normal in size. PULMONIC VALVE: Not well visualized. Doppler: There was no evidence for stenosis. No significant regurgitation. TRICUSPID VALVE: The valve appears to be grossly normal. Doppler: There was no evidence for stenosis. Mild regurgitation. Peak gradient: 21mm Hg (D). PERICARDIUM: There was no pericardial effusion. Patient weight: 91.8lb _Ejection fraction:_ 65-75% _Fractional shortening:_ 32% up to 5Kg 5-11.5Kg 11.6-22.9Kg 23-45Kg 45-57Kg Aortic Root 7-13 <17 13-22 17-27 17-27 LA diam 6-13 <23 24-38 33-47 37-40 RVID 10-17 7-15 7-15 7-18 8-17 LVIDd 12-22 <32 24-38 33-47 37-40 LVPW 2-4 3-6 5-7 6-8 7-8 IVS 2-4 3-6 5-7 6-8 7-8 BASIC MEASUREMENTS ADULT NORMAL Left ventricle LV internal dimension, ED, chordal *38.4 mm 43-52 level, PLAX LV internal dimension, ES, chordal 26.6 mm 23-38 level, PLAX Fractional shortening, chordal level, 31 % >29 PLAX LV posterior wall thickness, ED 7.47 mm IVS/LVPW ratio, ED 0.98 <1.3 Ventricular septum Septal thickness, ED 7.35 mm Aortic valve Leaflet separation 19 mm 15-26 Left atrium Anterior-posterior dimension 23 mm Anterior-posterior dimension index 1.76 cm/m^2 <2.2 Right ventricle RV internal dimension, ED, PLAX 23.7 mm 19-38 BASIC MEASUREMENTS ADULT NORMAL Aortic valve Leaflet separation 19 mm 15-26 Aorta Root diameter, ED 28 mm 20-37 DOPPLER MEASUREMENTS ADULT NORMAL Aortic valve Peak velocity, S 84.7 cm/s Regurgitant velocity, ED 401 cm/s Regurgitant deceleration 3520 cm/s^2 Regurgitant pressure half-time 341 ms Regurgitant gradient, ED 64 mm Hg Mitral valve Peak E-wave velocity 76.5 cm/s Peak A-wave velocity 83.4 cm/s Pressure half-time 55 ms Peak gradient, D 2 mm Hg Peak E/A ratio 0.9 Valve area, pressure half-time 4 cm^2 Valve area index, pressure half-time 3.05 cm^2/m^2 Tricuspid valve Peak gradient, D 21 mm Hg Maximal inflow velocity 227 cm/s Systemic veins Estimated CVP 10 mm Hg Pulmonic valve Peak velocity, S 69.2 cm/s LEGEND: Mean values are shown as u=mean value. Asterisk (*) burkett values outside specified normal range. Prepared and signed by Navjot Oconnor [id number]
[2016-08-26] MEDS ORDERED: IOHEXOL 350 MG/ML 10 ML VIAL (for RAD DIAG) IV ONE (19:13)
--- NOTE | 2016-08-26 19:39 | RADRPT ---
EXAM DATE/TIME: 08/26/2016 18:05 [facility] COMPARISON: No previous studies available for comparison. INDICATIONS : Aneurysm IV CONTRAST: 86 cc Omnipaque 350 (iohexol) IV ; Cumulative dose for multiple exams. RADIATION DOSE: 38.5 CTDIvol (mGy) ; Combined studies MEDICAL HISTORY : Cerebrovascular disease. Aneurysm, intracranial. Hypertension. SURGICAL HISTORY : Tonsillectomy. ENCOUNTER: Initial ACUITY: 1 day PAIN SCALE: 0/10 LOCATION: Neck Elevated flow velocities and ICA/CCA ratios have been found to correlate with increased degrees of vessel stenosis, calculated as percentage of diameter relative to a normal segment of distal ICA/CCA. TECHNIQUE: Volumetric scanning was performed using a multirow detector CT scanner. The data was post processed with a variety of visualization algorithms including full-volume maximum intensity pro jection, multiplanar sliding thin-slab reformation, curved-planar reformation, and surface-rendering techniques. Using automated exposure control and adjustment of the mA and/or kV according to patient size, radiation dose was kept as low as reasonably achievable to obtain optimal diagnostic quality i mages. FINDINGS: The aortic arch has some mild calcification. The left common carotid artery arises fro m the base of the right brachiocephalic artery. This is a normal variant. The brachiocephalic and l eft subclavian origins are normal. The common carotid arteries are normal in caliber. There is calcif ied plaque at the carotid bulb regions bilaterally and extending into the proximal internal carotid a rteries. However significant stenosis is not appreciated. The internal carotids are patent bilateral ly. The vertebral arteries are patent bilaterally and seen throughout the neck. CONCLUSION: Calcified plaque at the carotid bulb and proximal internal carotid arteries bilateral ly but a significant stenosis is not appreciated. Isra Lopes MD on August 26, 2016 at 19:26 Board Certified Radiologist. This report was verified electronically.
--- NOTE | 2016-08-26 19:44 | RADRPT ---
EXAM DATE/TIME: 08/26/2016 18:05 [facility] COMPARISON: CT BRAIN W/O CONTRAST, August 26, 2016, 9:10. CT BRAIN W/O CONTRAST, August 18, 2016, 14:26. CT BRAIN W /O CONTRAST, August 22, 2016, 15:49. MRA BRAIN W/O CONTRAST, August 23, 2016, 12:08. CT BRAIN W/O CON TRAST, August 23, 2016, 16:24. INDICATIONS : Aneurysm IV CONTRAST: 68 cc Omnipaque 350 (iohexol) IV ; Cumulative dose for multiple exams. RADIATION DOSE: 38.5 CTDIvol (mGy) ; Combined studies MEDICAL HISTORY : Cerebrovascular disease. Hypertension. SURGICAL HISTORY : Tonsillectomy. ENCOUNTER: Initial ACUITY: 1 day PAIN SCALE: 0/10 LOCATION: Cranial TECHNIQUE: Volumetric scanning was performed using a multi-row detector CT scanner. The data was post processed with a variety of visualization algorithms including full volume maximum intensity projection, multi -planar sliding thin slab reformation, curved planar reformation, and surface rendering techniques. Using automated exposure control and adjustment of the mA and/or kV according to patient size, radiat ion dose was kept as low as reasonably achievable to obtain optimal diagnostic quality images. FINDINGS: The internal carotids are patent bilaterally. There is atherosclerotic calcification seen in the cave rnous and supraclinoid portions of the internal carotid arteries but a significant stenosis is not cl early appreciated. The internal carotid arteries are seen to normally bifurcate into the anterior an d middle cerebral arteries. There does appear to be some asymmetry to the posterior left middle cere bral artery territory perfusion when compared to the right side in the parietal lobes with diminished flow on the left side. The patient has had an infarct in this region. The basilar artery is formed from the two vertebral arteries. The basilar artery is seen to normally bifurcate into the posterior cerebral arteries. An aneurysm is not seen. A significant vascular malformation is not seen. CONCLUSION: Mildly diminished flow in the left posterior middle cerebral artery territory supplyi ng the left parietal lobe in a region of the patient's previous infarct. Thrombus or occluded vessel is not seen. The cause of the patient's bilateral parietal small areas of hemorrhage is not clearly identified. Isra Lopes MD on August 26, 2016 at 19:19 Board Certified Radiologist. This report was verified electronically.
[2016-08-26 20:20] VITALS: BP 188/90; PULSE 86; RESP 17; TEMP 97.2; O2SAT 98
[2016-08-27 00:20] VITALS: BP 150/78; PULSE 67; RESP 17; TEMP 97.4; O2SAT 97
[2016-08-27] MEDS: CHLORHEXIDINE GLUCONATE 2 % 1 PACK (2 CLOTHS) TOP SCH (04:02)
[2016-08-27 04:20] VITALS: BP 131/63; PULSE 73; RESP 17; TEMP 97; O2SAT 99
[2016-08-27] MEDS: METOPROLOL TARTRATE 25 MG TAB PO SCH ×2 (05:32→13:17)
[2016-08-27] MEDS: INSULIN ASPART SUPPLEMENTAL SCALE SQ SCH ×2 (05:35→11:00)
[2016-08-27 08:00] VITALS: BP 130/64; PULSE 68; RESP 19; TEMP 96.5; O2SAT 99
[2016-08-27] MEDS: PANTOPRAZOLE SOD 40 MG DELAYED RELEASE TAB PO SCH (09:07)
[2016-08-27] MEDS: DOCUSATE SODIUM 100 MG CAP PO SCH (09:07)
--- NOTE | 2016-08-27 09:44 | RADRPT ---
EXAM DATE/TIME: 08/27/2016 08:20 [facility] COMPARISON: CT BRAIN W/O CONTRAST, August 26, 2016, 9:10. INDICATIONS : Follow up bleed. RADIATION DOSE: 32.02 CTDIvol (mGy) MEDICAL HISTORY : Cardiovascular disease. Hypertension. Bleed SURGICAL HISTORY : None. ENCOUNTER: Subsequent ACUITY: 1 week PAIN SCALE: 0/10 LOCATION: Distal TECHNIQUE: Multiple contiguous axial images were obtained of the head. Using automated exposure control and adj ustment of the mA and/or kV according to patient size, radiation dose was kept as low as reasonably a chievable to obtain optimal diagnostic quality images. FINDINGS: There is evidence of a stable focal acute parenchymal hemorrhage within the left parietal lobe measur ing 1.5 cm in size. Stable acute subarachnoid hemorrhage is noted within the right high parietal lob e also. Moderate periventricular and subcortical white matter small vessel ischemic changes are note d bilaterally. The ventricles, sulci and cisterns are stable in appearance. There is no midline alessio ft. The bone windows are unremarkable. CONCLUSION: 1. Stable acute parenchymal hemorrhage within the left parietal lobe measuring 1.5 cm. 2. Stable small acute subarachnoid hemorrhage within the right parietal lobe. 3. Chronic moderate periventricular and subcortical white matter small vessel ischemic changes bilat erally. 4. Stable cerebral atrophy. Grant Padilla MD on August 27, 2016 at 9:28 Board Certified Radiologist. This report was verified electronically.
--- NOTE | 2016-08-27 11:09 | HHI.PR ---
Subjective Remarks resting comfortably with no distress. no pain. no new complaints and hoping she would go home today. one high BP reading yesterday which she relates to her anxiety episode. daughter at the bedside. d/w the RN. Objective Vitals Vital Signs Date Time Temp Pulse Resp B/P Pulse Ox O2 Delivery O2 Flow Rate FiO2 08/27/16 08:00 96.5 68 19 130/64 99 08/27/16 04:20 97.0 73 17 131/63 99 08/27/16 00:20 97.4 67 17 150/78 97 08/26/16 20:20 97.2 86 17 188/90 98 08/26/16 12:00 97.7 74 18 122/60 98 I/O 08/26/16 08/26/16 08/26/16 08/27/16 08/27/16 08/27/16 07:00 15:00 23:00 07:00 15:00 23:00 Intake Total 240 ml 240 ml 120 ml Balance 240 ml 240 ml 120 ml Intake Oral 240 ml 240 ml 120 ml # Voids 1 1 # Bowel Movements 0 0 Result Diagram: 08/23/16 0407 08/23/16 0407 Imaging Last Impressions Head CT 08/27/16 0600 Signed Impressions: Service Date/Time: Saturday, August 27, 2016 08:20 - CONCLUSION: 1. Stable acute parenchymal hemorrhage within the left parietal lobe measuring 1.5 cm. 2. Stable small acute subarachnoid hemorrhage within the right parietal lobe. 3. Chronic moderate periventricular and subcortical white matter small vessel ischemic changes bilaterally. 4. Stable cerebral atrophy. Grant Padilla MD Neck CTA 08/26/16 1800 Signed Impressions: Service Date/Time: Friday, August 26, 2016 18:05 - CONCLUSION: Calcified plaque at the carotid bulb and proximal internal carotid arteries bilaterally but a significant stenosis is not appreciated. Isra Lopes MD Head CTA 08/26/16 0000 Signed Impressions: Service Date/Time: Friday, August 26, 2016 18:05 - CONCLUSION: Mildly diminished flow in the left posterior middle cerebral artery territory supplying the left parietal lobe in a region of the patient's previous infarct. Thrombus or occluded vessel is not seen. The cause of the patient's bilateral parietal small areas of hemorrhage is not clearly identified. Isra Lopes MD Head Magnetic Resonance Angiography 08/23/16 0000 Signed Impressions: Service Date/Time: Tuesday, August 23, 2016 12:08 - CONCLUSION: Normal examination. 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 The neck measures approximately 1.8 mm. Almas Burgos MD Carotid Artery Ultrasound 08/22/16 0000 Signed Impressions: Service Date/Time: Monday, August 22, 2016 17:49 - CONCLUSION: Mild plaque of the carotid bulb regions without a significant stenosis seen. The peak systolic velocities are normal. There is a mildly elevated ICA/CCA ratio on the left. Isra Lopes MD Objective Remarks GENERAL: This is a well-nourished, well-developed patient, in no apparent distress. CARDIOVASCULAR: Regular rate and regular rhythm without murmurs, gallops, or rubs. RESPIRATORY: Clear to auscultation. Breath sounds equal bilaterally. No wheezes , rales, or rhonchi. GASTROINTESTINAL: Abdomen soft, non-tender, nondistended. Normal, active bowel sounds MUSCULOSKELETAL: Extremities without clubbing, cyanosis, or edema. NEURO: Alert & Oriented x4 to person, place, time, situation. Moves all ext x4 Procedures none Medications and IVs Current Medications Labetalol HCl (Trandate Inj) 20 mg ONCE ONCE IV PUSH Last administered on 08/22 15:19; Start 08/22/16 at 15:15; Stop 08/22/16 at 15:16; Status DC Lorazepam 1 mg 1 mg ONCE ONCE IV PUSH Last administered on 08/22/16 15:42; Start 08/22/16 at 15:30; Stop 08/22/16 at 15:31; Status DC Sodium Chloride (NS 1000 ml Inj) 1,000 ml @ 42 mls/hr [id number] IV Last administered on 08/23/16 15:50; Start 08/22/16 at 16:30; Stop 08/24/16 at 09:18 ; Status DC Sodium Chloride (NS Flush) 2 ml UNSCH PRN IV FLUSH FLUSH AFTER USING IV ACCESS ; Start 08/22/16 at 16:30 Sodium Chloride (NS Flush) 2 ml BID IV FLUSH Last administered on 08/26/16 21: 33; Start 08/22/16 at 21:00 Acetaminophen (Tylenol) 650 mg Q6H PRN PO PAIN 1-10 AND/OR FEVER >101F Last administered on 08/24/16 18:34; Start 08/22/16 at 16:30 Pantoprazole Sodium (Protonix Inj) 40 mg DAILY IV Last administered on 08:15; Start 08/23/16 at 09:00; Stop 08/25/16 at 12:40; Status DC Ondansetron HCl (Zofran Inj) 4 mg Q6H PRN IV NAUSEA OR VOMITING; Start at 16:30 Docusate Sodium (Colace) 100 mg BID PO Last administered on 08/27/16 09:07; Start 08/22/16 at 21:00 Sennosides (Senokot) 17.2 mg Q12H PRN PO CONSTIPATION; Start 08/22/16 at 16:30 Albuterol/ Ipratropium (Duoneb Neb) 1 ampule Q4HR NEB PRN INH WHEEZING; Start 08/22/16 at 16:30 Miscellaneous Information 1 [id number] XX ; Start 08/22/16 at 16:30 Chlorhexidine Gluconate (Chlorhexidine 2% Cloth) 3 pack Taper DAILY@04 TOP ; Start 08/23/16 at 04:00; Stop 08/19/17 at 03:59 Chlorhexidine Gluconate 3 pack 3 pack UNSCH PRN TOP HYGIENIC CARE; Start at 16:30 Potassium Chloride 100 ml @ 50 mls/hr Q2H PRN IV For Potassium 2.8 - 3.2 mEq/L ; Start 08/22/16 at 16:30; Stop 08/25/16 at 12:40; Status DC Potassium Chloride (KCl 20 Meq Premix Inj) 100 ml @ 50 mls/hr Q2H PRN IV For Potassium 2.8 - 3.2 mEq/L; Start 08/22/16 at 16:30; Stop 08/25/16 at 12:41; Status DC Potassium Bicarb/ Potassium Chloride 50 meq 50 meq UNSCH PRN PO For Potassium 3.3 - 3.5 mEq/L; Start 08/22/16 at 16:30; Stop 08/25/16 at 12:41; Status DC Potassium Chloride 100 ml @ 25 mls/hr UNSCH PRN IV For Potassium 3.3 - 3.5 mEq /L; Start 08/22/16 at 16:30; Stop 08/25/16 at 12:41; Status DC Potassium Chloride 100 ml @ 50 mls/hr Q2H PRN IV For Potassium 3.3 - 3.5 mEq/L ; Start 08/22/16 at 16:30; Stop 08/25/16 at 12:41; Status DC Magnesium Sulfate/ Sodium Chloride (Magnesium Sulfate Inj/NS Inj) 100 ml @ 50 mls/hr UNSCH PRN IV For Magnesium 0.9 - 1.1 mg/dL; Start 08/22/16 at 16:30; Stop 08/25/16 at 12:41; Status DC Magnesium Oxide 800 mg 800 mg UNSCH PRN PO For Magnesium 1.2 - 1.6 mg/dL; Start 08/22/16 at 16:30; Stop 08/25/16 at 12:41; Status DC Magnesium Sulfate/ Sodium Chloride (Magnesium Sulfate Inj/NS Inj) 100 ml @ 50 mls/hr UNSCH PRN IV For Magnesium 1.2 - 1.6 mg/dL; Start 08/22/16 at 16:30; Stop 08/25/16 at 12:41; Status DC Potassium Phosphate 2000 mg 2,000 mg Q4H PRN PO For Phosphorus < 2.5 mg/dL; Start 08/22/16 at 16:30; Stop 08/25/16 at 12:42; Status DC Sodium Phosphate/ Sodium Chloride (Sodium Phosphate Inj/NS 250 ml Inj) 250 ml @ 42 mls/hr UNSCH PRN IV For Phosphorus < 2.5 mg/dL; Start 08/22/16 at 16:30; Stop 08/25/16 at 12:42; Status DC Potassium Phosphate (K-Phos) 2,000 mg UNSCH PRN PO/TUBE SEE LABEL COMMENTS; Start 08/22/16 at 16:30; Stop 08/25/16 at 12:42; Status DC Dextrose (D50w (Vial) Inj) 25 ml UNSCH PRN IV PUSH HYPOGLYCEMIA-SEE COMMENTS; Start 08/22/16 at 16:45 Glucagon (Glucagon Inj) 1 mg UNSCH PRN OTHER HYPOGLYCEMIA-SEE COMMENTS; Start 08/22/16 at 16:45 Insulin Aspart (NovoLOG SUPPLEMENTAL SCALE) 1 ACHS SLIDING SCALE SQ ; Start at 21:00 Hydralazine HCl (Apresoline Inj) 20 mg Q6H PRN IV PUSH SBP>160, DBP>90 Last administered on 08/24/16 16:51; Start 08/22/16 at 17:30 Metoprolol Tartrate 12.5 mg 12.5 mg Q12HR PO Last administered on 08/22/16 20: 45; Start 08/22/16 at 21:00; Stop 08/23/16 at 08:03; Status DC Nicardipine HCl/ Sodium Chloride (Cardene Inj/NS 250 ml Inj) 250 ml @ 0 mls/hr TITRATE IV Last administered on 08/22/16 19:51; Start 08/22/16 at 19:15; Stop 08/25/16 at 12:42; Status DC Metoprolol Tartrate (Lopressor) 25 mg Q8H PO Last administered on 08/26/16 21: 33; Start 08/23/16 at 08:00; Stop 08/26/16 at 22:48; Status DC Midazolam HCl (Versed Inj) 2 mg NOW ONCE IV ; Start 08/23/16 at 12:00; Stop at 12:01; Status DC Pantoprazole Sodium (Protonix) 40 mg DAILY PO Last administered on 08/27/16 09: 07; Start 08/26/16 at 09:00 Iohexol (Omnipaque 350 Inj) 68 ml STK-MED ONCE IV Last administered on 19:13; Start 08/26/16 at 19:13; Stop 08/26/16 at 19:14; Status DC Metoprolol Tartrate (Lopressor) 25 mg Q8H PO Last administered on 08/27/16 05: 32; Start 08/27/16 at 06:00 A/P Assessment and Plan A/P Cerebral hemorrhage 08/22 CT brain-1.2 cm hemorrhage left occipital region History of CVA 07/2008-at that time 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 evaluated by neurology and neurosurgery. Respiratory: Maintain O2 sat greater than 92%. O2 titrate 14 L/m nasal cannula. 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 Hyponatremia- resolved Prophylaxis: GI Prophylaxis Protonix DVT Prophylaxis -- SCDs No pharmacological DVT prophylaxis in the setting of a bleed, patient up out of bed ambulating in room PT evaluation appreciated. Discharge Planning likely dc home later today if CT ok with neurology. see med list. f/u; pcp and neurology. d/w the patient and her daughter at the bedside. case management for [facility]. time spent 31 min. Mango Alcala MD August 27, 2016 11:09
[2016-08-27 12:00] VITALS: BP 148/70; PULSE 72; RESP 18; TEMP 97; O2SAT 99
== END 2016-08-27 13:42 | disposition home health service (06) | DRG 65 ==
LOC: NEPC 14:37 → NEDA 16:35 → N03A 18:34 → N06B 08-25 08:08
PROVIDERS: ADMIT Internal Medicine; ATTEND Internal Medicine
DX: I61.1 Nontraumatic intracerebral hemorrhage in hemisphere, cortical (principal); I16.9 Hypertensive crisis, unspecified; I67.1 Cerebral aneurysm, nonruptured; F03.90 Unspecified dementia, unspecified severity, without behavioral disturbance, psychotic disturbance, mood disturbance, and anxiety; E87.1 Hypo-osmolality and hyponatremia; I10 Essential (primary) hypertension; I25.10 Atherosclerotic heart disease of native coronary artery without angina pectoris; G43.909 Migraine, unspecified, not intractable, without status migrainosus
CPT/HCPCS: 70450; 70496; 70498; 70544; 80048; 80053; 81001; 82948; 83735; 84100; 85025; 85027; 85610; 85730; 93306; 93880; 96374; 96375; C9113; J0360; J2060; J7030; J7050; Q9967